=== PATIENT | male | born 1960 | race Asian ===

== ENCOUNTER 2023-05-15 09:55 | Emergency (ER) | payer MEDICAID, SELFPAY ==
[2023-05-15] VITALS (15 sets, daily range): BP systolic 135–164; BP diastolic 87–107; PULSE 53–71; RESP 18–20; TEMP 37.1; O2SAT 96–100; BMI 32.4
--- NOTE | 2023-05-15 10:34 | CRLHL7_ITS ---
For Patients: As a result of the Cures Act, medical imaging exams and procedure reports are released immediately into your electronic medical record. You may view this report before your referring provider. If you have questions, please contact your health care provider. INDICATION: COUGH TECHNIQUE: Chest 1 view COMPARISON: None FINDINGS: Cardiovascular and mediastinum: Cardiac silhouette is prominent. Lungs and pleural spaces: Lungs are clear. No sign of infiltrate or mass. No sign of pleural effusion. No pneumothorax. Bones and soft tissues: Chronic deformity of the mid left clavicle. Mild degenerative changes. IMPRESSION: No acute findings. Dictated by Misael Carmona MD @ 05/15/2023 11:10:59 AM (Electronically Signed)
--- NOTE | 2023-05-15 10:35 | ED_ITS ---
HPI - General Adult General Chief complaint: Shortness of Breath/Dyspnea Stated complaint: Short of breath, cough Time Seen by Provider: 05/15/23 09:59 History of Present Illness HPI narrative: This 62-year-old male comes in reporting cough and associated chest discomfort when coughing. He began coughing a couple days ago. He arrives with normal vital signs. He does not report any fever. 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 Related Data Previous Rx's Medication Instructions Recorded acetaminophen 300 mg-codeine 30 mg 1 tab PO Q6H PRN pain #20 tabs 05/15/23 tablet Allergies Allergy/AdvReac Type Severity Reaction Status Date / Time No Known Drug Allergies Allergy Verified 05/15/23 10:18 Review of Systems Status of ROS: Reports: 10 or more systems reviewed and unremarkable except as noted in History and below Narrative: Constitutional: No fevers, no weight gain or loss. Eyes: No discharge. No vision changes. HENT: No congestion, no sore throat, no ear pain. Cardiovascular: No palpitations. Respiratory: Frequent cough that is nonproductive and associated chest discomfort when coughing. Gastrointestinal: No abdominal pain, no vomiting, no diarrhea. Genitourinary: No dysuria, no hematuria. Musculoskeletal: Normal range of motion. Skin: No rashes, no pruritis. Neurological: No dizziness, weakness, sensory change, speech change. Endo/Heme/Allergies: No bruising or bleeding. No polydipsia. Pysch: no suicidality, no anxiety, no insomnia. All other systems reviewed and are negative. PFSH PFS Social History Smoking Status: Never smoker Do you use any of these nicotine containing products: None How often do you have a drink containing alcohol: never How often do you have six or more drinks on one occasion: Never AUDIT-C Alcohol total score: 0 Non-prescribed substance use: denies use Exam Narrative: Exam Narrative: Constitutional: Well-developed, well-nourished, no acute distress. HEENT: Normocephalic, atraumatic. Some nasal congestion and rhinorrhea. Neck: Normal range of motion. Nontender. Supple. Heart: Regular. No murmurs. Normal rate. Intact distal pulses. Lungs: Clear to auscultation. No chest discomfort. No wheezes, rhonchi, or rales. Frequent coughing which is nonproductive. Abdomen: Normal bowel sounds. Nontender. No rebound tenderness. Genitalia: Deferred. Back: No midline tenderness. Normal range of motion. Extremities: Normal range of motion. No injury. Skin: Intact. No rash. Warm. No erythema or pallor. Neurologic: No altered sensation. No weakness. Alert and oriented. Nursing notes and vitals signs are reviewed. Const: Vital Signs, click to edit/add: Vital Signs - 24 hr 05/15/23 10:07 05/15/23 10:49 05/15/23 10:50 Temperature 98.8 F Pulse Rate 64 63 Pulse Rate [Right Pulse Oximeter] 63 Respiratory Rate 18 Blood Pressure 159/97 H Blood Pressure [Le ft Upper Arm] 150/92 H Pulse Oximetry 96 99 100 Oxygen Delivery Me thod Room Air Room Air Room Air Course Vital Signs Vital signs: Initial Vital Signs Temperature 98.8 F 05/15/23 10:07 Temperature Source Temporal Artery Scan 05/15/23 10:07 Pulse Rate 63 05/15/23 10:07 Pulse Rhythm Regular 05/15/23 10:07 Respiratory Rate 18 05/15/23 10:07 Blood Pressure 150/92 H 05/15/23 10:07 Blood Pressure Mean 111 H 05/15/23 10:07 Blood Pressure Position Sitting 05/15/23 10:07 Pulse Oximetry 96 05/15/23 10:07 Oxygen Delivery Method Room Air 05/15/23 10:07 Vital Signs Temperature 98.8 F 05/15/23 10:07 Pulse Rate 63 05/15/23 10:07 Respiratory Rate 18 05/15/23 10:07 Blood Pressure 150/92 H 05/15/23 10:07 Pulse Oximetry 96 05/15/23 10:07 Oxygen Delivery Method Room Air 05/15/23 10:07 Temperature 98.8 F 05/15/23 10:07 Pulse Rate 71 05/15/23 12:30 Respiratory Rate 20 05/15/23 12:50 Blood Pressure 135/101 H 05/15/23 12:02 Pulse Oximetry 100 05/15/23 12:30 Oxygen Delivery Method Room Air 05/15/23 10:50 Medical Decision Making MDM Narrative Medical decision making narrative: This patient arrives with persistent nonproductive cough and associated chest discomfort when coughing. He also has rhinorrhea. Nasal swab is obtained and returns negative for COVID, influenza, and RSV. Additionally a chest x-ray shows no sign of acute pulmonary disease. The patient received an oral dose of dexamethasone 10 mg. He is okay to be discharged home. He was provided with a note for return to work and a prescription for some tablets of Tylenol 3 for symptomatic relief. Lab Data Labs: Lab Results 05/15/23 Range/Units 10:35 SARS-CoV-2 (PCR) Negative SARS-CoV-2 (Negative) Influenza Type A (PCR) Negative PCR FLU A (Negative) Influenza Type B (PCR) Negative PCR FLU B (Negative) RSV (PCR) Negative PCR RSV (Negative) Discharge Plan Discharge Clinical Impression: Acute upper respiratory infection Patient Disposition: Home, Self-Care Condition: Unchanged Additional Instructions: Take medication as prescribed and needed. Follow up with MD return if worsening. Prescriptions: New acetaminophen-codeine 300-30 mg tablet 1 tab PO Q6H PRN (Reason: pain) Qty: 20 0RF Follow Up/Referrals: Nazario Alvarado DO [Primary Care Provider] - Stand Alone Forms: [employer] Info Instructions
[2023-05-15 11:25] LABS: PCR FLU A Negative PCR FLU A (Negative); PCR FLU B Negative PCR FLU B (Negative); PCR RSV Negative PCR RSV (Negative)
[2023-05-15 11:29] LABS: SARS PCR* Negative SARS-CoV-2 (Negative)
[2023-05-15] MEDS: dexAMETHasone 10 MG/ML inj PO (12:45)
== END 2023-05-15 13:03 | disposition home or self-care (01) ==
PROVIDERS: Emergency Provider Emergency Medicine Emergency Medical Services; PCP Family Medicine
DX: J06.9 Acute upper respiratory infection, unspecified (principal)
CPT/HCPCS: 71045; 87631; 99283; 99284; J1100

== ENCOUNTER 2023-05-20 17:04 | Emergency (ER) | payer MEDICAID, SELFPAY ==
[2023-05-20 17:26] VITALS: BP 163/80; PULSE 53; RESP 20; TEMP 36.6; O2SAT 99; BMI 30.5
--- NOTE | 2023-05-20 18:32 | CRLHL7_ITS ---
For Patients: As a result of the Cures Act, medical imaging exams and procedure reports are released immediately into your electronic medical record. You may view this report before your referring provider. If you have questions, please contact your health care provider. INDICATION: Shortness of breath TECHNIQUE: Chest radiograph 2 views COMPARISON: 05/15/2023 FINDINGS: Cardiovascular and mediastinum: The heart silhouette is normal in size and morphology. The mediastinum is normal in appearance. Lungs and pleural spaces: Both lungs are unremarkable in appearance. No sign of pleural effusion seen. No pneumothorax is identified. Bones and soft tissues: No significant findings. IMPRESSION: 1. No acute cardiopulmonary disease is seen. Dictated by Darrell Nova MD @ 05/20/2023 8:07:52 PM Dictated by: Darrell Nova MD @ 05/20/2023 20:07:58 (Electronically Signed)
--- NOTE | 2023-05-20 18:33 | ED.GENADULT ---
HPI - General Adult General Chief complaint: Unspecified Complaint, Adult Stated complaint: Continual hiccups from meds-chest pressure-codeine Time Seen by Provider: 05/20/23 18:19 Source: patient Mode of arrival: ambulatory Limitations: language barrier History of Present Illness HPI narrative: 62-year-old male presenting today with uncontrollable hiccups that have been going on since Monday. He states that on Monday he was seen here with cough and given dexamethasone. The next day he developed hiccups and he has not been able to stop. He holds his breath, drinks water and nothing helps. He can not sleep at night. He states that his chest hurts because of this continuous hiccups. He does continue to cough and that has not gotten significantly better. He does feel short of breath because of this. No changes in appetite. He feels quite tired. No fevers or chills. No nausea or vomiting. Patient denies any medical issues, takes no daily medications. Related Data Previous Rx's Medication Instructions Recorded acetaminophen 300 mg-codeine 30 mg 1 tab PO Q6H PRN pain #20 tabs 05/15/23 tablet Allergies Allergy/AdvReac Type Severity Reaction Status Date / Time No Known Drug Allergies Allergy Verified 05/15/23 10:18 Review of Systems Status of ROS: Reports: 10 or more systems reviewed and unremarkable except as noted in History and below [facility] Social History Smoking Status: Never smoker Do you use any of these nicotine containing products: None How often do you have a drink containing alcohol: never How often do you have six or more drinks on one occasion: Never AUDIT-C Alcohol total score: 0 Non-prescribed substance use: denies use Exam Narrative: Exam Narrative: Overweight, well-developed patient , appears uncomfortable. Continuously hiccups throughout the H&P. Alert and oriented. Answers questions appropriately. Mood and affect are appropriate. Thoughts are goal oriented and rational. Patient speaks in full sentences without needing to catch his breath but cannot complete a sentence without hiccuping. HEENT: Normocephalic atraumatic. Pupils are equally round reactive to light. Extraocular muscles are intact. Conjunctivae are moist without any icterus noted. Moist mucous membranes. Posterior pharynx is normal. Neck is soft without any lymphadenopathy or thyromegaly. No masses are appreciated. Cardiovascular: Heart is regular rate and rhythm S1 and S2 are present without any murmurs. Lungs: Clear to auscultation bilaterally no wheezes rhonchi or rales are appreciated. Patient takes deep breaths without any discomfort. Abdomen: Soft and nontender nondistended , protuberant with normal bowel sounds. Extremities: Bilateral lower extremities are without edema. Normal DP and PT pulses. Skin: Well perfused without any obvious rashes. Const: Vital Signs, click to edit/add: Vital Signs - 24 hr 05/20/23 17:26 Temperature 98 F Pulse Rate [Pulse Oximeter] 53 L Respiratory Rate 20 Blood Pressure [Le ft Upper Arm] 163/80 H Pulse Oximetry 99 Oxygen Delivery Me thod Room Air Course Course ED Course: IV was started and patient received 1 mg of IV Ativan. EKG, read by me, shows sinus bradycardia with a pulse of 49. Chest x-ray, read by me, does not show any acute pathology. Patient's initial troponin did come back elevated at 0.1-aspirin 325 mg p.o. was administered. I went back to have a conversation with the patient to discuss his findings. Upon further exploration patient tells me that he feels like there is a tightness in his chest that gets worse when he hiccups. However, the tightness is there all the time for the last several days. Unfortunately, there is a language barrier as patient only speaks Dianne. At this time I did give the patient a sublingual nitroglycerin. Repeat EKG, read by me, is unchanged. Repeat troponin is 0.09. Heparin ACS protocol was started. Remainder of his lab work was unremarkable. Discussed the patient with physician at [facility]-patient will be transferred for cardiology services. Vital Signs Vital signs: Initial Vital Signs Temperature 98 F 05/20/23 17:26 Temperature Source Temporal Artery Scan 05/20/23 17:26 Pulse Rate 53 L 05/20/23 17: Respiratory Rate 20 05/20/23 17:26 Blood Pressure 163/80 H 05/20/23 17: Blood Pressure Mean 107 H 05/20/23 17:26 Blood Pressure Position Supine 05/20/23 17:26 Pulse Oximetry 99 05/20/23 17:26 Oxygen Delivery Method Room Air 05/20/23 17:26 Vital Signs Temperature 98 F 05/20/23 17:26 Pulse Rate 53 L 05/20/23 17:26 Respiratory Rate 20 05/20/23 17:26 Blood Pressure 163/80 H 05/20/23 17:26 Pulse Oximetry 99 05/20/23 17:26 Oxygen Delivery Method Room Air 05/20/23 17:26 Temperature 98 F 05/20/23 17:26 Pulse Rate 53 L 05/20/23 17:26 Respiratory Rate 20 05/20/23 17:26 Blood Pressure 163/80 H 05/20/23 17:26 Pulse Oximetry 99 05/20/23 17:26 Oxygen Delivery Method Room Air 05/20/23 17:26 Medical Decision Making MDM Narrative Medical decision making narrative: 62-year-old male with [id number] pain with elevated troponins. Patient will be transferred to [facility] for further management. Lab Data Lab results reviewed: Yes I reviewed the patient's lab results Labs: Lab Results 05/20/23 05/20/23 05/20/23 Range/Units 18:45 19:20 20:30 WBC 7.25 (4.50-11.00) K/uL RBC 5.07 (4.30-5.90) m/uL Hgb 14.7 (13.5-17.5) gm/dL Hct 43.4 (37.0-53.0) % MCV 86 (80-100) fL MCH 29 (26-34) pg MCHC 34 (32-36) gm/dL RDW Coeff of Tacho 12.7 (11.5-15.5) % Plt Count 233 (140-440) K/uL Neut % (Auto) 43.9 (42.0-72.0) % Lymph % (Auto) 41.0 (20-44) % [place] % (Auto) 9.1 (0.0-11.0) % Eos % (Auto) 4.7 (0.0-7.0) % Baso % (Auto) 0.7 (0.0-3.0) % Neut # (Auto) 3.19 (1.7-7.0) K/uL Lymph # (Auto) 2.97 H (0.90-2.90) K/uL [place] # (Auto) 0.70 (0.00-0.90) K/UL Eos # (Auto) 0.34 (0.00-0.50) K/uL Baso # (Auto) 0.05 (0.00-0.30) K/uL Abs Immat Gran (auto) 0.04 (0.00-0.30) K/uL Imm/Tot Granulo (auto) 0.6 % ESR 2 (2-15) mm/hr D-Dimer Quant (PE/DVT) < 0.27 (0.00-0.50) ug/ml Sodium 140 (135-149) mmol/L Potassium 4.2 (3.6-5.1) mmol/L Chloride 107 (96-114) mmol/L Carbon Dioxide 24 (20-32) mmol/L Anion Gap 9 (7-15) mEq/L BUN 13 (7-30) mg/dL Creatinine 0.8 (0.5-1.5) mg/dL Estimated Creat Clear 70.69 Estimated GFR 99 ml/min Glucose 104 (60-115) mg/dL Calcium 9.1 (8.4-10.6) mg/dL Total Bilirubin 0.3 (0.1-1.5) mg/dL Direct Bilirubin 0.0 (0.0-0.5) mg/dL AST 25 (12-35) U/L ALT 31 (4-50) U/L Alkaline Phosphatase 68 (40-150) U/L Troponin I 0.10 H* 0.09 H* (0.01-0.04) ng/mL C-Reactive Protein < 0.5 L (0.5-1.0) mg/dL Total Protein 7.5 (6.0-8.3) g/dL Albumin 4.3 (3.3-5.0) g/dL Lipase 104 (23-300) U/L TSH 1.520 (0.270-4.20) uIU/mL SARS-CoV-2 (PCR) Negative SARS-CoV-2 (Negative) Influenza Type A (PCR) Negative PCR FLU A (Negative) Influenza Type B (PCR) Negative PCR FLU B (Negative) RSV (PCR) Negative PCR RSV (Negative) Imaging Data Chest x-ray: Attestation: I have reviewed the pertinent imaging results. Radiologist's impression: Chest radiograph 2 views COMPARISON: 05/15/2023 FINDINGS: Cardiovascular and mediastinum: The heart silhouette is normal in size and morphology. The mediastinum is normal in appearance. Lungs and pleural spaces: Both lungs are unremarkable in appearance. No sign of pleural effusion seen. No pneumothorax is identified. Bones and soft tissues: No significant findings. IMPRESSION: 1. No acute cardiopulmonary disease is seen. ECG Data Attestation: I personally reviewed and interpreted this ECG as follows: Discharge Plan Discharge Clinical Impression: Non-STEMI (non-ST elevated myocardial infarction) Patient Disposition: [facility] Condition: Stable Prescriptions: No Action acetaminophen-codeine 300-30 mg tablet 1 tab PO Q6H PRN (Reason: pain) Qty: 20 0RF Follow Up/Referrals: Nazario Alvarado DO [Primary Care Provider] - Stand Alone Forms: [employer] Info Instructions
[2023-05-20] MEDS: LORazepam 2 MG/ML inj 1 MG IVP (18:43)
[2023-05-20 18:58] LABS: Basophils Absolute Auto 0.05 K/uL (0.00-0.30); Basophils Percent Auto 0.7 % (0.0-3.0); Eosinophils Absolute Auto 0.34 K/uL (0.00-0.50); Eosinophils Percent Auto 4.7 % (0.0-7.0); Hematocrit 43.4 % (37.0-53.0); Hemoglobin* 14.7 gm/dL (13.5-17.5); Immature Granulocytes Abs Auto 0.04 K/uL (0.00-0.30); Immature Granulocytes Pct Auto 0.6 %; Lymphocytes Absolute Auto 2.97 K/uL (0.90-2.90); Mean Corpuscular HGB Conc 34 gm/dL (32-36); Mean Corpuscular Hemoglobin 29 pg (26-34); Mean Corpuscular Volume 86 fL (80-100); Monocytes Percent Auto 9.1 % (0.0-11.0); Neutrophils Absolute Auto 3.19 K/uL (1.7-7.0); Neutrophils Percent Auto 43.9 % (42.0-72.0); Platelet Count* 233 K/uL (140-440); RDW Coefficient of Variation % 12.7 % (11.5-15.5); Red Blood Count 5.07 m/uL (4.30-5.90); White Blood Count* 7.25 K/uL (4.50-11.00)
[2023-05-20 19:01] LABS: Slide Review Reflex No
[2023-05-20 19:14] LABS: Chloride* 107 mmol/L (96-114)
[2023-05-20 19:15] LABS: Albumin* 4.3 g/dL (3.3-5.0); Potassium* 4.2 mmol/L (3.6-5.1); Sodium* 140 mmol/L (135-149)
[2023-05-20 19:17] LABS: Creatinine* 0.8 mg/dL (0.5-1.5); Est. Creatinine Clearance* 70.69; Estimated Glomerular Filt Rate 99 ml/min
[2023-05-20 19:18] LABS: Alanine Aminotransferase* 31 U/L (4-50); Alkaline Phosphatase* 68 U/L (40-150); Anion Gap 9 mEq/L (7-15); Aspartate Amino Transferase* 25 U/L (12-35); Bilirubin Total* 0.3 mg/dL (0.1-1.5); Blood Urea Nitrogen* 13 mg/dL (7-30); Calcium* 9.1 mg/dL (8.4-10.6); Carbon Dioxide* 24 mmol/L (20-32); Glucose* 104 mg/dL (60-115); Total Protein* 7.5 g/dL (6.0-8.3)
[2023-05-20 19:27] LABS: C Reactive Protein* < 0.5 mg/dL (0.5-1.0)
[2023-05-20 19:37] LABS: Erythrocyte SedimentationRate* 2 mm/hr (2-15)
[2023-05-20 19:47] LABS: D Dimer Quantitative* < 0.27 ug/ml (0.00-0.50)
[2023-05-20] MEDS: ASPIRIN 81 MG TAB.CHEW 324 MG PO (20:00)
[2023-05-20 20:51] LABS: Lipase* 104 U/L (23-300)
[2023-05-20 20:51] LABS: PCR FLU A Negative PCR FLU A (Negative); PCR FLU B Negative PCR FLU B (Negative); PCR RSV Negative PCR RSV (Negative)
[2023-05-20 20:54] LABS: SARS PCR* Negative SARS-CoV-2 (Negative)
[2023-05-20 21:15] LABS: Troponin I* 0.09 ng/mL (0.01-0.04)
[2023-05-20] MEDS: NITROGLYCERIN 0.4 MG TAB.SUBL SUBLINGUAL (21:47)
[2023-05-20] MEDS: HEPARIN 5,000 UNIT/0.5 ML INJ 4000 UNIT IVP (21:47)
[2023-05-20 21:50] VITALS: BP 165/101; PULSE 56; RESP 16; O2SAT 99
[2023-05-20 22:00] VITALS: BP 136/88; PULSE 50; RESP 16; O2SAT 98
[2023-05-20 22:30] VITALS: BP 152/79; PULSE 48; RESP 16; O2SAT 99
[2023-05-20] MEDS: HEPARIN 25,000 UNIT/500 ML BAG 21 UNIT IV (22:51)
[2023-05-20 23:05] LABS: Troponin I* 0.09 ng/mL (0.01-0.04)
[2023-05-20 23:10] LABS: INR 1.01 (0.91-1.10); Prothrombin Time 13.9 Seconds
[2023-05-20 23:45] LABS: Partial Thromboplastin Time* > 180 Seconds (23-33)
--- NOTE | 2023-05-20 23:47 | ED.NURSE ---
Call from lab, critical ptt, stop heparin per Dr. Wilson.
--- NOTE | 2023-05-20 23:57 | ED.NURSE ---
EMS arrived, report given. Lizbeth called with ETA of EMS.
--- NOTE | 2023-05-21 00:01 | ED.NURSE ---
lab informed APTT >180. Per protocol, Heparin drip stopped.
== END 2023-05-21 00:08 | disposition short-term general hospital (02) ==
PROVIDERS: Emergency Provider Family Medicine; PCP Family Medicine
DX: I21.4 Non-ST elevation (NSTEMI) myocardial infarction (principal)
CPT/HCPCS: 36415; 71046; 80048; 80076; 83690; 84443; 84484; 85025; 85379; 85610; 85651; 85730; 86140; 87631; 93005; 96374; 99285; A9270; J1644; J2060

== ENCOUNTER 2023-05-20 23:57 | Outpatient (CLI) | payer MEDICAID, SELFPAY | END 2023-05-20 23:58 | disposition home or self-care (01) | LOC: AMB 05-23 09:44 | PROVIDERS: PCP Family Medicine; Visit Provider Family Medicine | DX: I21.4 Non-ST elevation (NSTEMI) myocardial infarction (principal) | CPT/HCPCS: A0425; A0427 ==

== ENCOUNTER 2023-08-05 10:46 | Emergency (ER) | payer MEDICAID, SELFPAY ==
[2023-08-05] VITALS (13 sets, daily range): BP systolic 106–146; BP diastolic 57–80; PULSE 61–76; RESP 20; TEMP 38.2; O2SAT 94–96; BMI 30.7
--- NOTE | 2023-08-05 11:33 | CRLHL7_ITS ---
For Patients: As a result of the Cures Act, medical imaging exams and procedure reports are released immediately into your electronic medical record. You may view this report before your referring provider. If you have questions, please contact your health care provider. INDICATION: Body aches for 3 days, febrile INDICATION: Body aches for 3 days. TECHNIQUE: Chest 1 view. COMPARISON: None FINDINGS: Cardiovascular and mediastinum: Heart size and vasculature are normal in caliber and appearance. Mediastinum is within normal limits. Lungs and pleural space: Lungs are clear. No sign of infiltrate or mass. No sign of pleural effusion. No pneumothorax. Bones and soft tissues: No significant findings. IMPRESSION: Lungs are clear. Dictated by Cecil Bravo MD @ 08/05/2023 12:26:46 PM Dictated by: Cecil Bravo MD @ 08/05/2023 12:26:51 (Electronically Signed)
--- NOTE | 2023-08-05 11:36 | ED_ITS ---
HPI - General Adult General Date Seen: 08/05/23 Chief complaint: Cough Stated complaint: Body aches for three days, difficulty breathing Time Seen by Provider: 08/05/23 11:28 Source: patient and family Mode of arrival: ambulatory Limitations: language barrier History of Present Illness HPI narrative: Patient is a 62-year-old here with his sons for evaluation of cough, body aches, fatigue, nausea. Started with a cough a couple of days ago and his son says that he got worse yesterday was very achy all over, more coughing, no fevers that they are aware of but they really have not checked. Took Tylenol yesterday and that helps some, has not had any Tylenol since then. They did home COVID test which was negative. He has continued to feel poorly so they bring him in for evaluation. Son provides most of the history, patient does provide some history as well, son was interpreting for him. He notes that his throat feels dry in his eyes are burning. They denies significant medical history aside from borderline hypertension, no history of lung disease or heart disease. He does not smoke. Related Data Previous Rx's Medication Instructions Recorded oseltamivir 75 mg capsule (Tamiflu) 75 mg PO BID 5 days #10 caps 08/05/23 Allergies Allergy/AdvReac Type Severity Reaction Status Date / Time No Known Drug Allergies Allergy Verified 08/05/23 10:55 Review of Systems Status of ROS: Reports: 10 or more systems reviewed and unremarkable except as noted in History and below PFSH PFS Social History Smoking Status: Never smoker Do you use any of these nicotine containing products: None How often do you have a drink containing alcohol: never How often do you have six or more drinks on one occasion: Never AUDIT-C Alcohol total score: 0 Non-prescribed substance use: denies use Exam Narrative: Exam Narrative: Vital signs as noted above. In general, an alert, nontoxic male, appears not to feel well. Head: Normocephalic, atraumatic. Eyes: Pupils are equal reactive. Extraocular movements are full. Conjunctivae are normal. ENT: Mucous membranes are moist. Neck: Supple without lymphadenopathy. Heart: Regular rate and rhythm. No murmur or rub. Lungs: Clear bilaterally. No increased work of breathing, crackles or wheezes. Abdomen: Soft and nontender. No organomegaly. Extremities: Well perfused. No edema. No calf tenderness. Pulses intact. Neurologic: Patient is alert and oriented to person and place. Speech is fluent. Face is symmetric. Moves all extremities equally. Affect: Normal. Skin: Warm and dry. Well perfused. Const: Vital Signs, click to edit/add: Vital Signs - 24 hr 08/05/23 10:51 08/05/23 11:24 08/05/23 11:30 Temperature 100.7 F H Pulse Rate 67 69 Pulse Rate [Right] 76 Respiratory Rate 20 Blood Pressure Blood Pressure [Le ft Upper Arm] 121/71 Pulse Oximetry 96 94 94 Oxygen Delivery Me thod Room Air 08/05/23 11:32 08/05/23 11:45 08/05/23 12:06 Temperature Pulse Rate 68 72 66 Pulse Rate [Right] Respiratory Rate Blood Pressure 106/63 Blood Pressure [Le ft Upper Arm] Pulse Oximetry 95 96 94 Oxygen Delivery Me thod 08/05/23 12:15 08/05/23 12:30 08/05/23 12:32 Temperature Pulse Rate 64 63 63 Pulse Rate [Right] Respiratory Rate Blood Pressure 146/80 H Blood Pressure [Le ft Upper Arm] Pulse Oximetry 95 95 96 Oxygen Delivery Me thod Course Course ED Course: Respiratory swab pending here, rule out influenza or RSV, COVID probably less likely given negative home test. Will do a chest x-ray to rule out pneumonia, some basic labs. He has been having some trouble with eating and drinking due to nausea so will give some IV fluids, Zofran as well as some Tylenol. Overall labs are reassuring, white blood cell count is 5, lactate is normal, CRP mildly elevated at 2. Metabolic panel is unremarkable as are LFTs. COVID negative, flu positive. Chest x-ray negative by my review, final radiology read likewise negative. Discussed all this with patient and his sons, they are interested in Tamiflu so I will prescribe that. Otherwise supportive care, Tylenol, fluids, rest. Brandy lyonsd be seen if not gradually improving in the next week, sooner at any time for worsening respiratory symptoms etcetera Vital Signs Vital signs: Initial Vital Signs Temperature 100.7 F H 08/05/23 10:51 Temperature Source Temporal Artery Scan 08/05/23 10:51 Pulse Rate 76 08/05/23 10:51 Respiratory Rate 20 08/05/23 10:51 Blood Pressure 121/71 08/05/23 10:51 Blood Pressure Mean 87 08/05/23 10:51 Blood Pressure Position Sitting 08/05/23 10:51 Pulse Oximetry 96 08/05/23 10:51 Oxygen Delivery Method Room Air 08/05/23 10:51 Vital Signs Temperature 100.7 F H 08/05/23 10:51 Pulse Rate 76 08/05/23 10:51 Respiratory Rate 20 08/05/23 10:51 Blood Pressure 121/71 08/05/23 10:51 Pulse Oximetry 96 08/05/23 10:51 Oxygen Delivery Method Room Air 08/05/23 10:51 Temperature 100.7 F H 08/05/23 10:51 Pulse Rate 63 08/05/23 12:32 Respiratory Rate 20 08/05/23 10:51 Blood Pressure 146/80 H 08/05/23 12:32 Pulse Oximetry 96 08/05/23 12:32 Oxygen Delivery Method Room Air 08/05/23 10:51 Medications Administered Medications: Discontinued Medications Generic Name Dose Route Start Last Admin Trade Name Freq PRN Reason Stop Dose Admin Acetaminophen 1,000 mg 08/05/23 11:33 08/05/23 12:34 Acetaminophen 500 Mg Tablet PO 08/05/23 11:34 1,000 mg ONCE ONE Administration Sodium Chloride 1,000 mls @ 1,000 mls/hr 08/05/23 11:45 08/05/23 12:15 0.9 % Sodium Chloride 1000 Ml IV 08/05/23 12:44 1,000 mls/hr .Q1H SIL Administration Ondansetron HCl 4 mg 08/05/23 11:33 08/05/23 12:34 Ondansetron 2 Mg/Ml Inj IVP 08/05/23 11:34 4 mg ONCE ONE Administration Medical Decision Making Lab Data Labs: Lab Results 08/05/23 08/05/23 Range/Units 10:56 12:05 WBC 5.02 (4.50-11.00) K/uL RBC 4.98 (4.30-5.90) m/uL Hgb 14.3 (13.5-17.5) gm/dL Hct 42.4 (37.0-53.0) % MCV 85 (80-100) fL MCH 29 (26-34) pg MCHC 34 (32-36) gm/dL RDW Coeff of Tacho 13.1 (11.5-15.5) % Plt Count 177 (140-440) K/uL Neut % (Auto) 73.7 H (42.0-72.0) % Lymph % (Auto) 13.9 L (20-44) % [place] % (Auto) 11.4 H (0.0-11.0) % Eos % (Auto) 0.2 (0.0-7.0) % Baso % (Auto) 0.6 (0.0-3.0) % Neut # (Auto) 3.70 (1.7-7.0) K/uL Lymph # (Auto) 0.70 L (0.90-2.90) K/uL [place] # (Auto) 0.60 (0.00-0.90) K/UL Eos # (Auto) 0.01 (0.00-0.50) K/uL Baso # (Auto) 0.03 (0.00-0.30) K/uL Abs Immat Gran (auto) 0.01 (0.00-0.30) K/uL Imm/Tot Granulo (auto) 0.2 % Sodium 136 (135-149) mmol/L Potassium 4.0 (3.6-5.1) mmol/L Chloride 104 (96-114) mmol/L Carbon Dioxide 19 L (20-32) mmol/L Anion Gap 13 (7-15) mEq/L BUN 15 (7-30) mg/dL Creatinine 1.0 (0.5-1.5) mg/dL Estimated Creat Clear 68.23 Estimated GFR 85 ml/min Glucose 111 (60-115) mg/dL Lactate 0.8 (0.5-1.9) mmol/L Calcium 8.4 (8.4-10.6) mg/dL Total Bilirubin 0.4 (0.1-1.5) mg/dL Direct Bilirubin 0.2 (0.0-0.5) mg/dL AST 42 H (12-35) U/L ALT 35 (4-50) U/L Alkaline Phosphatase 65 (40-150) U/L C-Reactive Protein 2.0 H (0.5-1.0) mg/dL Total Protein 7.6 (6.0-8.3) g/dL Albumin 4.5 (3.3-5.0) g/dL SARS-CoV-2 (PCR) Negative SARS-CoV-2 (Negative) Influenza Type A (PCR) POSITIVE PCR FLU A A (Negative) Influenza Type B (PCR) Negative PCR FLU B (Negative) RSV (PCR) Negative PCR RSV (Negative) Discharge Plan Discharge Clinical Impression: Influenza A Patient Disposition: Home, Self-Care Condition: Stable Instructions: Influenza (DC) Additional Instructions: Tylenol 1000 g 3 times daily as needed for fever, aches, headache etcetera. Influenza typically lasts around a week, at which time you should start to feel better. If you are feeling worse rather than gradually improving you should be seen again for re-evaluation. Tamiflu as prescribed. Prescriptions: New oseltamivir [Tamiflu] 75 mg capsule 75 mg PO BID 5 Days Qty: 10 0RF Follow Up/Referrals: Nazario Alvarado DO [Referring] - Stand Alone Forms: [employer] Info Instructions
[2023-08-05 11:44] LABS: PCR FLU A POSITIVE PCR FLU A (Negative); PCR FLU B Negative PCR FLU B (Negative); PCR RSV Negative PCR RSV (Negative)
[2023-08-05 11:52] LABS: SARS PCR* Negative SARS-CoV-2 (Negative)
[2023-08-05 12:14] LABS: Lactate Sepsis w/Reflex* 0.8 mmol/L (0.5-1.9)
[2023-08-05] MEDS: 0.9 % SODIUM CHLORIDE 1000 ml 1,000 ML IV (12:15)
[2023-08-05 12:20] LABS: Basophils Absolute Auto 0.03 K/uL (0.00-0.30); Basophils Percent Auto 0.6 % (0.0-3.0); Eosinophils Absolute Auto 0.01 K/uL (0.00-0.50); Eosinophils Percent Auto 0.2 % (0.0-7.0); Hematocrit 42.4 % (37.0-53.0); Hemoglobin* 14.3 gm/dL (13.5-17.5); Immature Granulocytes Abs Auto 0.01 K/uL (0.00-0.30); Immature Granulocytes Pct Auto 0.2 %; Lymphocytes Percent Auto 13.9 % (20-44); Mean Corpuscular HGB Conc 34 gm/dL (32-36); Mean Corpuscular Hemoglobin 29 pg (26-34); Mean Corpuscular Volume 85 fL (80-100); Monocytes Percent Auto 11.4 % (0.0-11.0); Neutrophils Percent Auto 73.7 % (42.0-72.0); Platelet Count* 177 K/uL (140-440); RDW Coefficient of Variation % 13.1 % (11.5-15.5); Red Blood Count 4.98 m/uL (4.30-5.90); White Blood Count* 5.02 K/uL (4.50-11.00)
[2023-08-05 12:29] LABS: Slide Review Reflex No
[2023-08-05] MEDS: ONDANSETRON 2 MG/ML inj 4 MG IVP (12:34)
[2023-08-05] MEDS: ACETAMINOPHEN 500 MG TABLET 1000 MG PO (12:34)
[2023-08-05 12:37] LABS: Albumin* 4.5 g/dL (3.3-5.0); Chloride* 104 mmol/L (96-114); Sodium* 136 mmol/L (135-149)
[2023-08-05 12:40] LABS: Alkaline Phosphatase* 65 U/L (40-150); Anion Gap 13 mEq/L (7-15); Aspartate Amino Transferase* 42 U/L (12-35); Bilirubin Direct* 0.2 mg/dL (0.0-0.5); Bilirubin Total* 0.4 mg/dL (0.1-1.5); Blood Urea Nitrogen* 15 mg/dL (7-30); Carbon Dioxide* 19 mmol/L (20-32); Est. Creatinine Clearance* 68.23; Estimated Glomerular Filt Rate 85 ml/min; Glucose* 111 mg/dL (60-115); Total Protein* 7.6 g/dL (6.0-8.3)
[2023-08-05 12:41] LABS: Alanine Aminotransferase* 35 U/L (4-50); Calcium* 8.4 mg/dL (8.4-10.6)
== END 2023-08-05 13:17 | disposition home or self-care (01) ==
PROVIDERS: Emergency Provider Emergency Medicine
DX: J10.1 Influenza due to other identified influenza virus with other respiratory manifestations (principal)
CPT/HCPCS: 36415; 71045; 80048; 80076; 83605; 85025; 86140; 87040; 87631; 96374; 99284; A9270; J2405; J7030

== ENCOUNTER 2023-12-04 15:10 | Emergency (ER) | payer MEDICAID, SELFPAY ==
[2023-12-04 15:48] VITALS: BP 136/81; PULSE 62; RESP 18; TEMP 36.7; O2SAT 97; BMI 30.3
--- NOTE | 2023-12-04 16:38 | ED.GENADULT ---
HPI - General Adult General Time Seen by Provider: 16:38 Date Seen: 12/04/23 Chief complaint: Cough Stated complaint: Flu, cough Time Seen by Provider: 12/04/23 16:37 Source: patient, family, RN notes reviewed and historic interpreter Mode of arrival: ambulatory Limitations: no limitations History of Present Illness HPI narrative: This 63-year-old male is here with concern of headache, sore throat, cough, chest congestion and chest discomfort. He started with symptoms yesterday. The historic interpreter was trying to tell me that his symptoms started after eating watermelon. His daughter whom is in the room who is 17 stated that he was not interpreting correctly. Patient started to get sick yesterday with primarily complaining of the headache, sore throat with chest discomfort/cough. He has not had any fevers. Patient is not taking any medications. Did have influenza A in July, states that is doesn't feel like that. Does have a history of being transferred to [place] for NSTEMI in May 2023. He states that he is not on any medications, not even aspirin. Chest discomfort doesn't feel like that time. No travel recently. Related Data Previous Rx's Medication Instructions Recorded amoxicillin 875 mg tablet 875 mg PO BID #14 tabs 12/04/23 Allergies Allergy/AdvReac Type Severity Reaction Status Date / Time No Known Drug Allergies Allergy Verified 12/04/23 15:52 Review of Systems Status of ROS: Reports: 6 or more systems reviewed and unremarkable except as noted in History and below PFSH PFS Social History Smoking Status: Never smoker Do you use any of these nicotine containing products: None How often do you have a drink containing alcohol: never How often do you have six or more drinks on one occasion: Never AUDIT-C Alcohol total score: 0 Non-prescribed substance use: denies use Exam Const: Vital Signs, click to edit/add: Vital Signs - 24 hr 12/04/23 15:48 Temperature 98.1 F Pulse Rate [Pulse Oximeter] 62 Respiratory Rate 18 Blood Pressure [Le ft Upper Arm] 136/81 Pulse Oximetry 97 Oxygen Delivery Me thod Room Air This 63-year-old male is alert, interactive, no apparent stress. Seems to be speaking easily without difficulty. Sclera clear, conjugate gaze. TMs with normal translucency, no erythema. Anterior nares normal. Oropharynx with normal mucosa, no exudates erythema. Certainly see no significant tonsillar erythema or lesions. Neck supple, no adenopathy. Lungs are clear, good air entry, no wheezing or crackles. CV regular rate and rhythm, no murmur, normal S1-S2, no S3-S4. Patient has no lower extremity edema at all, no pretibial pitting edema. When I was examining his legs for edema, he complained of pain along his right heel, has point tenderness over the right heel, he did bring this up as an aside. Did review probable plantar fasciitis. Will provide him a handout at discharge. Documenting provider has reviewed patient's vital signs: yes Course Course ED Course: We will look at chest x-ray, labs, EKG. Certainly sounds like upper respiratory infection developing. Nursing staff did collect triple viral swab on arrival. Reevaluation(s) Time of Reevaluation #1: 18:48 Reevaluation #1: Try to review with patient and find out why he is not on any medicines. He does state that they put a stent in in May when he was sent to the economics faculty member. He states there were no refills on the medications. Reviewed with him that he needed to follow up in clinic, still should be on medicines for his heart. As far as his respiratory symptoms, he seems like he thinks he is getting an antibiotic. I have tried to review with them that I think this is probably viral. Even despite interpretation, there seems to be some difficulty. I ultimately decided to sending in short course of amoxicillin for him to the pharmacy. I will request that he follow up in clinic for further review of his cardiac medicines. Did try to go over that there was small little right-sided pleural effusion. This could be associated with a respiratory virus. He does not seem to have any symptoms of congestive heart failure. Vital Signs Vital signs: Initial Vital Signs Temperature 98.1 F 12/04/23 15:48 Temperature Source Temporal Artery Scan 12/04/23 15:48 Pulse Rate 62 12/04/23 15:48 Respiratory Rate 18 12/04/23 15:48 Blood Pressure 136/81 12/04/23 15:48 Blood Pressure Mean 99 12/04/23 15:48 Blood Pressure Position Sitting 12/04/23 15:48 Pulse Oximetry 97 12/04/23 15:48 Oxygen Delivery Method Room Air 12/04/23 15:48 Vital Signs Temperature 98.1 F 12/04/23 15:48 Pulse Rate 62 12/04/23 15:48 Respiratory Rate 18 12/04/23 15:48 Blood Pressure 136/81 12/04/23 15:48 Pulse Oximetry 97 12/04/23 15:48 Oxygen Delivery Method Room Air 12/04/23 15:48 Temperature 98.1 F 12/04/23 15:48 Pulse Rate 62 12/04/23 15:48 Respiratory Rate 18 12/04/23 15:48 Blood Pressure 136/81 12/04/23 15:48 Pulse Oximetry 97 12/04/23 15:48 Oxygen Delivery Method Room Air 12/04/23 15:48 Medical Decision Making Lab Data Lab results reviewed: Yes I reviewed the patient's lab results Labs: Lab Results 12/04/23 12/04/23 Range/Units 15:59 17:25 WBC 8.86 (4.50-11.00) K/uL RBC 5.14 (4.30-5.90) m/uL Hgb 14.7 (13.5-17.5) gm/dL Hct 44.4 (37.0-53.0) % MCV 86 (80-100) fL MCH 29 (26-34) pg MCHC 33 (32-36) gm/dL RDW Coeff of [place] 13.2 (11.5-15.5) % Plt Count 208 (140-440) K/uL Neut % (Auto) 71.5 (42.0-72.0) % Lymph % (Auto) 19.1 L (20-44) % [place] % (Auto) 6.5 (0.0-11.0) % Eos % (Auto) 2.4 (0.0-7.0) % Baso % (Auto) 0.3 (0.0-3.0) % Neut # (Auto) 6.33 (1.7-7.0) K/uL Lymph # (Auto) 1.70 (0.90-2.90) K/uL [place] # (Auto) 0.60 (0.00-0.90) K/UL Eos # (Auto) 0.21 (0.00-0.50) K/uL Baso # (Auto) 0.03 (0.00-0.30) K/uL Abs Immat Gran (auto) 0.02 (0.00-0.30) K/uL Imm/Tot Granulo (auto) 0.2 % SARS-CoV-2 (PCR) Negative SARS-CoV-2 (Negative) Influenza Type A (PCR) Negative PCR FLU A (Negative) Influenza Type B (PCR) Negative PCR FLU B (Negative) RSV (PCR) Negative PCR RSV (Negative) POC Troponin I 0.02 (0.01-0.04) ng/ml Imaging Data Chest x-ray: Attestation: I have reviewed the pertinent imaging results. My impression: Did visualize chest x-ray, do see small right pleural effusion, no infiltrate noted. Radiologist's impression: Patient: EFRA NASCIMENTO Facility:?[facility] Patient ID:?[id number] Site Patient ID:?[id number]. Site :?[id number] Study:?XRay-Chest 1 VIEW-12/04/2023 5:25:40 PM Ordering Physician:?DR. TINSLEY Final Report: Indication: FLU COUGH Technique: Frontal chest Comparison: Frontal chest August 05, 2023 Findings: Interval development of a small right pleural effusion. No focal consolidation or pneumothorax. Trachea is midline. Cardiac silhouette is unchanged. Bones and soft tissues are stable. Impression: Small right pleural effusion. Dictated by Howie Irwin MD @ 12/04/2023 5:56:44 PM (Electronic Signature) ECG Data Attestation: I personally reviewed and interpreted this ECG as follows: (Sinus bradycardia, 57 beats per minute. No ischemic change, no infarct noted. QT corrected 397 milliseconds.) Prior ECG tracings: available for review (Compared to 05/20/2023, heart rate has increased from 47 beats per minute 57 beats per minute.) Discharge Plan Discharge Clinical Impression: Acute upper respiratory infection, Plantar fasciitis of right foot Patient Disposition: Home, Self-Care Condition: Stable Instructions: Upper Respiratory Infection (ED), Plantar Fasciitis (ED), Plantar Fasciitis Exercises (ED) Additional Instructions: Amoxicillin sent in but do think that you can wait to take this. I do believe that your respiratory symptoms are likely viral, antibiotics do not help this. You can take the antibiotic if you feel you are worsening, not improving over the next 7-10 days. As far as your underlying cardiac issues, he really need to follow up in clinic and you should be on certain medications to help protect your heart and prevent further heart attacks. You certainly should be on an 81 mg aspirin daily unless you have been told for other reasons that you should not take aspirin. Activity Level: Activity as Tolerated Prescriptions: New amoxicillin 875 mg tablet 875 mg PO BID Qty: 14 0RF Follow Up/Referrals: Provider,Not a Local [Primary Care Provider] - Stand Alone Forms: [employer] Info Instructions
[2023-12-04 16:47] LABS: PCR FLU A Negative PCR FLU A (Negative); PCR FLU B Negative PCR FLU B (Negative); PCR RSV Negative PCR RSV (Negative); SARS PCR* Negative SARS-CoV-2 (Negative)
--- NOTE | 2023-12-04 16:58 | XR_ITS ---
Patient: EFRA NASCIMENTO Facility:?[facility] Patient ID:?[id number] Site Patient ID:?[id number]. Site :?1960 Study:?XRay-Chest 1 VIEW-12/04/2023 5:25:40 PM Ordering Physician:?DR. TINSLEY Final Report: Indication: FLU COUGH Technique: Frontal chest Comparison: Frontal chest August 05, 2023 Findings: Interval development of a small right pleural effusion. No focal consolidation or pneumothorax. Trachea is midline. Cardiac silhouette is unchanged. Bones and soft tissues are stable. Impression: Small right pleural effusion. Dictated by Howie Irwin MD @ 12/04/2023 5:56:44 PM Signed by:?Howie Irwin MD @12/04/2023 5:56:44 PM (Electronic Signature)
--- OUTSIDE RECORDS SUMMARY | 2023-12-04 17:12 | XMS_ITS | Clinical Summary ---
Author Name Unknown Organization [facility] Address [address] [place] [address] Care Team Providers Care Metal Bonding Assembler Name Role Phone Nazario Alvarado Primary Care Provider [phone] Allergies No known active allergies Medications Medication Sig Dispensed Refills Start Date End Date Status ARTIFICIAL TEAR SOLUTION OP Place 1 drop into both eyes as needed Active predniSONE (DELTASONE) 10 MG tabletIndications:Melanie n metapneumovirus (hMPV) pneumonia 4 tabs daily for 2 days, then 3 tabs daily for 2 days, then 2 tabs daily for 2 days, then 1 tab daily for 2 days, then stop 20 tablet 09/24/2022 Active albuterol (PROAIR HFA/PROVENTIL HFA/VENTOLIN HFA) 108 (90 Base) MCG/ACT inhalerIndications:Hum an metapneumovirus (hMPV) pneumonia Inhale 2 puffs into the lungs every 6 hours as needed for shortness of breath, wheezing or cough 18 g 09/24/2022 Active fluticasone-vilanterol (BREO ELLIPTA) 200-25 MCG/ACT inhalerIndications:Candor ctive airway disease without complication, unspecified asthma severity, unspecified whether persistent Inhale 1 puff into the lungs daily 28 each 09/24/2022 Active Active Problems Problem Noted Date Diagnosed Date Shortness of breath 09/22/2022 Wheezing 09/22/2022 Fever in adult 09/22/2022 Community acquired pneumonia of left upper lobe of lung 09/22/2022 Cough, unspecified type 09/22/2022 Immunizations Name Administration Dates Next Due TDAP (Adacel,Boostrix) 05/24/2020 Social History Tobacco Use Types Packs/Day Years Used Date Smoking Tobacco: Never Assessed Adolescent Education Answer Date Record ed Getting School Help Needed Not on file 04/29 Sex and Gender Information Value Date Recorded Sex Assigned at Not on file Gender Identity Not on file Sexual Orientation Not on file Last Filed Vital Signs Vital Sign Reading Time Taken Comments Blood Pressure 127/74 09/24/2022 12:10 PM COMMODITY MERCHANT Pulse 67 09/24/2022 12:10 PM COMMODITY MERCHANT Temperature 36.9 ??C (98.5 ??F) 09/24/2022 12:[address] Respiratory Rate 18 09/24/2022 12:10 PM COMMODITY MERCHANT Oxygen Saturation 97% 09/24/2022 12:10 PM COMMODITY MERCHANT Inhaled Oxygen Concentration - - Weight 84.8 kg (187 lb) 09/23/2022 5:37 AM COMMODITY MERCHANT Height 167.6 cm (5' 6) 09/21/2022 9:45 AM COMMODITY MERCHANT Body Mass Index 30.18 09/21/2022 9:45 AM COMMODITY MERCHANT Plan of Treatment Health Maintenance Due Date Last Done Comments ADVANCE CARE PLANNING 1960 ANNUAL REVIEW OF HM ORDERS 1960 ASTHMA ACTION PLAN [address] AST[address] TEST [address] COLONOGRAPHY 1959 FIT 1960 FLEX SIG 1960 YEARLY PREVENTIVE VISIT 1959 sDNA (Cologuard) 1960 Pneumococcal Vaccine: Pediatrics (0 to 5 Years) and At-Risk Patients (6 to 64 Years) (1 of 2 - PCV) 1965 COLONOSCOPY 1969 COLORECTAL CANCER SCREENING 1969 HIV SCREENING 1974 HEPATITIS C SCREENING 1977 ZOSTER IMMUNIZATION (1 of 2) 1978 LIPID 1999 RSV VACCINE ( & 60+) (1 - 1-dose 60+ series) 2019 COVID-19 Vaccine ( season) 2023 05/15/2021, 11/06/2020, 10/15/2020 INFLUENZA VACCINE (#1) 2023 PHQ-2 (once per calendar year) 2023 GLUCOSE 09/24/2025 09/24/2022, 09/07, 09/24/2022, Additional history exists DTAP/TDAP/TD IMMUNIZATION (2 - Td or Tdap) 05/24/2030 05/24/2020 HPV IMMUNIZATION Aged Out No longer e ligible based on patient's age to complete this topic IPV IMMUNIZATION Aged Out No longer e ligible based on patient's age to complete this topic MENINGITIS IMMUNIZATION Aged Out No l onger eligible based on patient's age to complete this topic RSV MONOCLONAL ANTIBODY Aged Out No l onger eligible based on patient's age to complete this topic Procedures Procedure Name Priority Date/Time Associated Diagnosis Comments GLUCOSE BY METER Routine 09/24/2022 2:21 AM COMMODITY MERCHANT from Last 3 Months or Most Recently Relevant to Health Maintenance Results * (ABNORMAL) Glucose by meter (09/24/2022 2:21 AM COMMODITY MERCHANT) GLUCOSE BY METER POCT 133(H) 70 - 99 mg/dL 09/24/2022 2:29 AM COMMODITY MERCHANT LABORATORY POC Blood, Capillary BLOOD SPECIMEN / Unknown 09/24/2022 2:21 AM COMMODITY MERCHANT 09/24/2022 2:29 AM COMMODITY MERCHANT [place] Pedraza MD [facility] POCT LABORATORY POC [facility] Lab [address], [address] [place] [address], [facility] [phone] from Last 3 Months or Most Recently Relevant to Health Maintenance Advance Directives For more information, please contact: [phone] * Full Code (Latest Code Status on File) Date Activated Date Inactivated Comments 09/21/2022 3:20 PM 09/24/2022 4:17 PM All basic an d advanced life-sustaining interventions are performed as appropriate Question Answer Comments Code status determined by: Discussion with delbert nt/ legal decision maker Care Teams Metal Bonding Assembler Relationship Specialty Start Date End Date Nazario Alvarado [address] [facility] [address] PCP - General Family Practice 05/24/20
--- OUTSIDE RECORDS SUMMARY | 2023-12-04 17:13 | XMS_ITS | Referral Summary ---
Author Name Unknown Organization [facility] Address [address] [place] [address] Care Team Providers Care Founder Ceo & President Name Role Phone Nazario Alvarado Primary Care Provider [phone] Allergies No known active allergies Medications Medication [...] 09/24/2022 Active fluticasone-vilanterol (BREO ELLIPTA) 200-25 MCG/ACT inhalerIndications:[place] ctive airway disease without complication, unspecified asthma [...] Comments Blood Pressure 127/74 09/24/2022 12:10 PM CORPORATE DEVELOPMENT INTERN Pulse 67 09/24/2022 12:10 PM CORPORATE DEVELOPMENT INTERN Temperature 36.9 ??C (98.5 ??F) 09/24/2022 12:[address] Respiratory Rate 18 09/24/2022 12:10 PM CORPORATE DEVELOPMENT INTERN Oxygen Saturation 97% 09/24/2022 12:10 PM CORPORATE DEVELOPMENT INTERN Inhaled Oxygen Concentration - - Weight 84.8 kg (187 lb) 09/23/2022 5:37 AM CORPORATE DEVELOPMENT INTERN Height 167.6 cm (5' 6) 09/21/2022 9:45 AM CORPORATE DEVELOPMENT INTERN Body Mass Index 30.18 09/21/2022 9:45 AM CORPORATE DEVELOPMENT INTERN Plan of Treatment Not on file Procedures Procedure Name Priority Date/Time Associated Diagnosis Comments GLUCOSE BY METER Routine 09/24/2022 2:21 AM CORPORATE DEVELOPMENT INTERN from Last 3 Months or Most Recently Relevant to Health Maintenance Results * (ABNORMAL) Glucose by meter (09/24/2022 2:21 AM CORPORATE DEVELOPMENT INTERN) [facility] Signature GLUCOSE BY METER POCT 133(H) 70 - 99 mg/dL 09/24/2022 2:29 AM CORPORATE DEVELOPMENT INTERN LABORATORY POC Blood, Capillary BLOOD SPECIMEN / Unknown 09/24/2022 2:21 AM CORPORATE DEVELOPMENT INTERN 09/24/2022 2:29 AM CORPORATE DEVELOPMENT INTERN [place] [facility] PO[facility] POC [facility] Lab [address], [address] [place] [address], [facility] [phone] from Last 3 Months or Most Recently Relevant to Health Maintenance Advance Directives For more information, please contact: [phone] * Full Code (Latest Code Status on File) Date Activated Date Inactivated Comments 09/21/2022 3:20 PM 09/24/2022 4:17 PM All basic an d advanced life-sustaining interventions are performed as appropriate Question Answer Comments Code status determined by: Discussion with delbert nt/ legal decision maker Care Teams Founder Ceo & President Relationship Specialty Start Date End Date Nazario Alvarado [address] [place] [address] PCP - General Family Practice 05/24/20
--- OUTSIDE RECORDS SUMMARY | 2023-12-04 17:13 | XMS_ITS | Clinical Summary ---
Author Name Unknown Organization [facility] Address [place], [place] [address] Care Team Providers Care Microwave Supervisor Name Role Phone Lucy Villa DO Primary Care Provider [phone] Allergies No known active allergies Medications Medication Sig Dispensed Refills Start Date End Date Status Advair Diskus 100-50 mcg/dose diskus inhaler Inhale 1 Puff by mouth two times daily. 03/27/2023 Active atorvastatin (LIPITOR) 40 mg tabletIndications:Hy pertriglyceridemia Take 1 Tablet (40 mg) by mouth once daily in the evening. 30 Tablet 05/22/2023 Active albuterol (PROVENTIL) 0.083 % neb solutionIndications: Shortness of breath Inhale 3 mL (2.5 mg) via a nebulizer every 4 hours if needed for Shortness Of Breath or Wheezing. 90 mL 1 05/25/2023 Active CPAPIndications:CINDY (obstructive sleep apnea) CPAP machine for home use at pressure 9 cm/H2O, full face mask x1/3month with a full face cushion x1/mo 1 Each 3 10/02/2023 Active Active Problems Problem Noted Date Diagnosed Date Elevated troponin level 05/20/2023 Hearing loss 05/20/2023 Overview: Mixed conductive and sensorineural hearing loss of left ear with restricted hearing of right ear Non-STEMI (non-ST elevated myocardial infarction ) 05/07/2023 Pneumonia due to human metapneumovirus Shortness of breath 09/22/2022 Community acquired pneumonia of left upper lobe of lung 09/22/2022 CINDY 05/08/2018 AHI-6 RDI-21 Supine REM-60 018 Adenomatous colon polyp 05/02/2018 Overview: Colonoscopy 04/2018 polyps, repeat in 3 years False positive cardiac stress test 03/07/2018 Abnormal cardiovascular stre ss test - inferior ischemia on stress echo 03/02/2018 Overview: False positive stress test, angiogram was normal Obesity 03/02/2018 Ventral hernia without obstruction or gangrene 0 03/02/2018 Family history of cardiac disorder 03/02/2018 Angina pectoris 03/02/2018 Resolved Problems Problem Noted Date Diagnosed Date Resolved Date CINDY 05/08/2018 AHI-6 RDI-21 Supine REM-60 07/05/2018 07/05/2018 CINDY (obstructive sleep apnea) 05/08/2018 07/05/2018 Overview: Sleep study at [facility] Cardiac ischemia 02/26/2018 03/02/2018 Encounters Date Type Department Care Team Description 10/02/2023 Telephone [facility] [address] [place] [address] Jack Bean MD Medication Management (CPAP) 10/02/2023 Telephone [facility] [address] [place] [address] Jack Bean MD Error-please disregard 09/29/2023 Telephone [facility] [address] [place] [address] Jack Bean MD Appointment (CPAP not working) 09/29/2023 Telephone [facility] [address] [place] [address] Conor Polk, [facility] (batteries) 09/08/2023 Orders Only INTERFACED 1 Adam Dugan MD <No scans attached> from Last 3 Months Immunizations Name Administration Dates Next Due Tdap 05/24/2020 Family History Medical History Relation Name Comments Diabetes type II Brother 1 COPD Brother 2 Heart attack Father Osteoarthritis Mother Diabetes type II Sister Relation Name Status Comments Brother 1 (Age T2DM) 80 Brother 2 (Age 65) COPD Brother 3 Alive Brother 4 Alive Brother 5 Alive Father (Age 70) OK Mother (Age 85) OA Sister (Age 65) T2DM Social History Tobacco Use Types Packs/Day Years Used Date Smoking Tobacco: Former Smokeless Tobacco: Never Tobacco Cessation:Counseling Given: Yes Comments:smoked 4-5 years only Alcohol Use Standard Drinks/Week Comments No 0 (1 standard drink = 0.6 oz pur e alcohol) PHQ-2 Answer Date Recorded PHQ-2 TOTAL SCORE 0 07/16/2020 Social Connections Answer Date Recorded Frequency of Communication with Friends and Fami ly 0 09/30/2022 Financial Resource Strain Answer Date R ecorded Difficulty of Paying Living Expenses 3 09/30/2022 Difficulty of Paying Living Expenses Not on file 09/30/2022 Food Insecurity Answer Date Recorded Worried About Running Out of Food in the Last Ye ar 1 09/30/2022 Transportation Needs Answer Date Record ed Lack of Transportation (Medical) 1 09/30/2022 Housing Stability Answer Date Recorded Unable to Pay for Housing in the Last Year 1 09/30/2022 Sex and Gender Information Value Date Recorded Sex Assigned at Not on file Gender Identity Not on file Sexual Orientation Not on file Obstetrics History Last Filed Vital Signs Vital Sign Reading Time Taken Comments Blood Pressure 142/82 07/03/2023 1:10 PM SHINGLE CARRIER Pulse 67 07/03/2023 1:07 PM [facility]INGLE CARRIER Temperature 37.3 ??C (99.2 ??F) 07/03/2023 1:07 PM CS T Respiratory Rate 18 05/22/2023 3:15 PM CDT Oxygen Saturation 98% 07/03/2023 1:07 PM SHINGLE CARRIER Inhaled Oxygen Concentration - - Weight 93.6 kg (206 lb 4.8 oz) 07/03/2023 1:07 P M SHINGLE CARRIER Height 168 cm (5' 6.14) 07/03/2023 1:07 PM SHINGLE CARRIER Body Mass Index 33.15 07/03/2023 1:07 PM SHINGLE CARRIER Plan of Treatment Upcoming Encounters Date Type Department Care Team (Late st Contact Info) Description 12/14/2023 3:30 PM CDT Office Visit [facility] [address] [place] [address] Jack Bean MD [address] [place] [address] Health Maintenance Due Date Last Done Comments HIV for age 15-65 1974 Zoster (shingles) series for age 50+ (1 of 2) 2009 Depression screening for age 12+ 07/16/2021 07/16/2020, 02/28/2018, 02/05/2018 COVID-19 vaccine series ( season) 2023 05/15/2021, 11/06/2020, 10/15/2020 Influenza for age 50-64 04/07/2024 BMI (ht and wt on same day) for age 18+ 07/03/2024 07/03/2023, 05/15/2023, 10/18/2022, Additional history exists Colonoscopy through age 75 09/08/202609/08, 04/30/2018, 04/30/2018, Additional history exists Lipids for age 45-75 05/21/2028 05/21/2023, 02/28/2018, 02/05/2018 Tetanus booster 05/24/2030 05/24/2020 Hepatitis C screening for age 18-79 Completed 05/30/2019 Tdap Completed 05/24/2020 Pneumococcal series for age 6-64 Aged Out No longer eligible based on patient's age to complete this topic Procedures Procedure Name Priority Date/Time Associated Diagnosis Comments SCAN-COLONOSCOPY 09/08/2023 3:00 PM SHINGLE CARRIER LIPID PANEL Early AM 05/21/2023 4:52 AM CDT ANTI HCV Routine 05/30/2019 9:15 AM CDT Encounter for HCV screening test for low risk patient from Last 3 Months or Most Recently Relevant to Health Maintenance Results * SCAN-COLONOSCOPY (09/08/2023 3:00 PM SHINGLE CARRIER) Narrative Procedure Note Link, Adam Erickson MD - 09/08/2023 2:07 PM CST [facility] [address] [address] [facility] [address], [address], [place] [address] Patient Name: Francisco Richardson Gender: Male Exam Date: 09/08/2023 Visit Number: [id number] Age: 63 Years Date of : 1960 Attending MD: Adam Dugan MD Medical Record#: [id number] Procedure: Colonoscopy Indications: Previous adenomatous polyp(s) Referring MD: Amisha Kelly PAC Primary MD: MD Monk Primary Medications: Intra Procedure Medications: Patient received monitored anesthesia care. Complications: No immediate complications Procedure: An examination of the heart and lungs was performed and found to be withinacceptable limits. . The patient was therefore deemed a reasonablecandidate for endoscopy and sedation. The risks and benefits of the procedure were explained to the patient.After obtaining informed consent, the patient received monitoredanesthesia care and I passed the scope without difficulty via the rectum to the cecum. The appendiceal orificeand ic valve were identified. The scope was retroflexed during theexamination The quality of the prep was good (Adrian/Gat Split). This was a complete examination throughout the entire colon. Findings: Polyp location: ascending colon. Quantity: 3. Size: 5-8 mm. Polypshape: sessile. Maneuver: polypectomy was performed with a cold snare. Removal: complete. Retrieval: complete. Bleeding: none. Polyp location: ascending colon. Quantity: 1. Size: 2 mm. Polyp shape:sessile. Maneuver: polypectomy was performed with a cold biopsy forceps . Removal: complete. Retrieval: complete. Bleeding: none. Polyp location: transverse colon. Quantity: 1. Size: 5 mm. Polypshape: sessile. Maneuver: polypectomy was performed with a cold snare . Removal: complete. Retrieval: none. Bleeding: none. Location: descending colonQuantity: 1. Size: 6 mm. Polyp shape: skip. Maneuver: polypectomy was performed with a cold snare . Removal: complete. Retrieval: complete. Bleeding: none. Hemorrhoids. Internal hemorrhoids without bleeding. Impression: Colorectal polyps Internal hemorrhoids Preliminary Plan: The patient and their physician will receive a copy of the pathologyreport as well as pathology-based recommendations for future screening orsurveillance. Pathology Results: A: COLON, ASCENDING, POLYPS: 1. Tubular adenomas (4) 2. Negative for high grade dysplasia 3. Per the colonoscopy report: a. Polyp sizes: 2 mm - 8 mm b. Resection: Complete c. Retrieval: Complete B: COLON, DESCENDING, POLYP: 1. Tubular adenoma 2. Negative for high grade dysplasia 3. Per the colonoscopy report: a. Polyp size: 6 mm b. Resection: Complete c. Retrieval: Complete MICROSCOPIC A: Performed B: Performed Electronically signed by: El Velez MD Interpreted at [facility], [address] [place], [place] [id number] Orders Instruction(s)/Education: Instruction/Education Timeframe Assessment Colon Cancer Prevention K63.5 Colon Polyps K63.5 Hemorrhoids K63.5 Final Plan: Repeat colonoscopy in 3 years for Polyp surveillance. We will attempt to contact you at appropriate intervals via U.S. mail. Wemay not be able to find you or contact you at that time, therefore youshould know that the responsibility for following our recommendation restswith you. If you don't hear from us at the time your procedure is due,please contact our office to schedule an appointment. If your contactinformation should change, please contact our office so that we can updateyour record. _Electronically signed by: Adam Dugan MD 09/08/2023 cc: No Primary cc: Amisha Kelly [facility] Adam Dugan MD OTHER * (ABNORMAL) Lipid Panel - In AM (05/21/2023 4:52 AM CDT) CHOLESTEROL,TOTAL 184 100 - 199 mg/dL 05/21/2023 5:56 AM CDT [facility] Comment: Cholesterol, Total Reference Ranges Desirable <200 mg/dL Borderline 200-239 mg/dL High >=240 mg/dL TRIGLYCERIDES 264(H) <150 mg/dL 05/21/2023 5:56 AM CDT [facility] HDL CHOLESTEROL 33(L) >40 mg/dL 5:56 AM CDT [facility] NON-HDL CHOLESTEROL 151(H) <145 mg/dl 05/21/2023 5:56 AM CDT [facility] CHOL/HDL RATIO 5.58(H) <4.50 05/21/2023 5:56 AM CDT [facility] LDL CHOLESTEROL 98 <=130 mg/dL 05/21/2023 5:56 AM CDT [facility] VLDL CHOLESTEROL 53(H) <=30 mg/dL 05/21/2023 5:56 AM CDT [facility] PROVIDER ORDERED STATUS RANDOM 05/21/2023 5:56 AM CDT [facility] Blood BLOOD SPECIMEN / Unknown Venipuncture / Unknown 05/21/2023 4:52 AM CDT 05/21/2023 5:19 AM CDT Nimesh Kay MD CHEMISTRY [facility] [address] [place] [address], * ANTI HCV (05/30/2019 9:15 AM CDT) HEPATITIS C ANTIBODY Non-React jad Non-React jad 05/30/2019 2:35 PM CDT [facility] Comment:Antibodies to HCV no t detected; does not exclude the possibility of exposure to HCV. Blood BLOOD SPECIMEN / Unknown Venipuncture / Unknown 05/30/2019 9:15 AM CDT 05/30/2019 9:19 AM CDT [facility] [address] [place] [address], from Last 3 Months or Most Recently Relevant to Health Maintenance Advance Directives * Full Code (Latest Code Status on File) Date Activated Date Inactivated Comments 05/21/2023 1:26 AM 05/22/2023 6:31 PM Question Answer Comments Code Status Discussion: Reviewed Preferences * Full Code Date Activated Date Inactivated Comments 03/02/2018 9:00 AM 03/02/2018 8:01 PM Care Teams Microwave Supervisor Relationship Specialty Start Date End Date Lucy Villa DO [address] [place] [address] PCP - General Family Practice 06/02/23
[2023-12-04 17:47] LABS: Troponin, Point-of-Care* 0.02 ng/ml (0.01-0.04)
[2023-12-04 18:19] LABS: Basophils Absolute Auto 0.03 K/uL (0.00-0.30); Basophils Percent Auto 0.3 % (0.0-3.0); Eosinophils Absolute Auto 0.21 K/uL (0.00-0.50); Eosinophils Percent Auto 2.4 % (0.0-7.0); Hematocrit 44.4 % (37.0-53.0); Hemoglobin* 14.7 gm/dL (13.5-17.5); Immature Granulocytes Abs Auto 0.02 K/uL (0.00-0.30); Immature Granulocytes Pct Auto 0.2 %; Lymphocytes Percent Auto 19.1 % (20-44); Mean Corpuscular HGB Conc 33 gm/dL (32-36); Mean Corpuscular Hemoglobin 29 pg (26-34); Mean Corpuscular Volume 86 fL (80-100); Monocytes Percent Auto 6.5 % (0.0-11.0); Neutrophils Absolute Auto 6.33 K/uL (1.7-7.0); Neutrophils Percent Auto 71.5 % (42.0-72.0); Platelet Count* 208 K/uL (140-440); RDW Coefficient of Variation % 13.2 % (11.5-15.5); Red Blood Count 5.14 m/uL (4.30-5.90); White Blood Count* 8.86 K/uL (4.50-11.00)
[2023-12-04 18:25] LABS: Slide Review Reflex No
[2023-12-04 18:48] LABS: Chloride* 107 mmol/L (96-114); Potassium* 4.2 mmol/L (3.6-5.1); Sodium* 141 mmol/L (135-149)
[2023-12-04 18:51] LABS: Anion Gap 8 mEq/L (7-15); Carbon Dioxide* 26 mmol/L (20-32); Creatinine* 0.8 mg/dL (0.5-1.5); Est. Creatinine Clearance* 67.34; Estimated Glomerular Filt Rate 99 ml/min
[2023-12-04 18:52] LABS: Blood Urea Nitrogen* 14 mg/dL (7-30); Calcium* 9.2 mg/dL (8.4-10.6); Glucose* 78 mg/dL (60-115)
[2023-12-04 18:54] LABS: C Reactive Protein* 0.8 mg/dL (0.5-1.0)
== END 2023-12-04 19:10 | disposition home or self-care (01) ==
PROVIDERS: Emergency Provider Family Medicine
DX: J06.9 Acute upper respiratory infection, unspecified (principal); M72.2 Plantar fascial fibromatosis
CPT/HCPCS: 36415; 71045; 80048; 84484; 85025; 86140; 87631; 99283

== ENCOUNTER 2025-02-14 18:20 | Emergency (ER) | payer MEDICAID, SELFPAY ==
--- OUTSIDE RECORDS SUMMARY | 2023-09-08 10:01 | XMS_ITS | Continuity of Care Document ---
Author Organization [facility] Address [address] [address] [place] [address] Phone Care Team Providers Care Environmental Laboratory Technician Name Role Phone Holley Vidal CRNA Unavailable Unavailable Allergies, Adverse Reactions, Alerts Substance Reaction Status Criticality No Known Allergies Active No Inform ation Medications Medication Instructions Dosage Effective Dates (start - s top) Status Comments Inhaler unknown as needed - Active Procedures Procedure Date Colonoscopy Flex; W/remov Les- Colonoscopy Flex; W/bx 1/mx Level Iv-surg Path Gross/micro 24 Init Hosp-da E&m Low Severity 3 Advance Directives Directive Yes / No Effective Date File Name No Information Encounters Encounter Description Practice Location Reason(s) For Visit Diagnoses Date Provider Providers Copied on Encounter [facility], [address] [address], [facility] [place], [id number], [place] tel:[phone] [facility] No Information 4 Young Babb. [address] [facility], [place], [place], [id number] , [place]. tel:[phone] Referring Provider: Adam Dugan MD, [address] [facility] [address], [place], [address] . tel:[phone] [facility], [address] [address], [place], [id number], [place] tel:[phone] [facility] Colorectal polypsInternal hemorrhoidsEncou nter for screening for malignant neoplasm of colonBenign neoplasm of ascending colonBenign neoplasm of descending colonPersonal history of colonic polyps 4 Ritchie Medina. [address] [facility] [address], [place], [place], [address] , [place]. tel:[phone] Referring Provider: Amisha Hart, [address] [place], [address]. tel:[phone] [facility], [address] [address], [place], [id number], [place] tel:[phone] [facility] No Information 3 Francesco Van. [address] [facility] [address], [place], [place], [address] , [place]. tel: [phone] Init Hosp-da E&m Low Severity [facility], [address] [address], [place], [address], [place] tel:[phone] [facility] No Information 3 Juan Jose Perkins. [address] [facility], [address], [place], [place], [address] , [place]. tel: [phone] Referring Provider: Gregorio Ingram MD , [address] [facility] [address], [place], [address] . tel:[phone] Family History Family Member Type Diagnosis Age At Onset No Information Immunizations Vaccine Date Status Comments SARS-COV-2 (COVID-19) vaccin e, mRNA, spike protein, LNP, preservative free, 30 mcg/0.3mL dose administered Note: [facility] bi-direct ional interface ; Source: Other Registry SARS-COV-2 (COVID-19) vaccin e, mRNA, spike protein, LNP, preservative free, 30 mcg/0.3mL dose administered Note: [facility] bi-direct ional interface ; Source: Other Registry SARS-COV-2 (COVID-19) vaccin e, mRNA, spike protein, LNP, preservative free, 30 mcg/0.3mL dose administered Note: [facility] bi-direct ional interface ; Source: Other Registry tetanus toxoid, reduced diphtheria toxoid, and acellular pertussis vaccine, adsorbed administered Note: [facility] b i-directional interface ; Source: Other Registry Payers Payer name Insurance type Covered alliance party ID Authordeion shwetha(s) raheel [facility] [id number] Social History Type Description Quantity Date Captured Comments Sex Male Smoking Status No Information Chief Complaint And Reason For Visit No Information Reason For Referral Reason For Referral No Information History Of Present Illness Encounter Date Complaint History Of Prese nt Illness No Information Functional Status Date Functional Assessmen t No Information Medications Administered Medication Instructions Dosage Effective Dates (start - stop) Status Comments No Drug Therapy Prescribed Instructions Date Instruction Additional Daljitr hector Colon Cancer Prevention Related to Colorectal polyps Colon Polyps Related to Color ectal polyps Hemorrhoids Related to Color ectal polyps Assessments Type Assessment Date No Information Patient Care Teams Name Effective Dates (start - stop) Status Members No Information
--- OUTSIDE RECORDS SUMMARY | 2023-09-08 10:01 | XMS_ITS | Continuity of Care Document ---
Author Organization [facility] Address [address] [address] [place] [address] Phone Care Team Providers Care Sales And Merchandising Representative Name Role Phone Holley Vidal CRNA Unavailable [...] Diagnoses Date Provider Providers Copied on Encounter [facility], [address] [address], [facility] [place], [id number], [place] tel:[phone] [facility] No Information 4 Young Babb. [address] [facility], [place], [place], [address] , [place]. tel:[phone] Referring Provider: Adam Dugan MD, [address] [facility] [address], [place], [address] . tel:[phone] [facility], [address] [address], [place], [address], [place] tel:[phone] [facility] Colorectal polypsInternal hemorrhoidsEncou nter for screening for malignant neoplasm of colonBenign neoplasm of ascending colonBenign neoplasm of descending colonPersonal history of colonic polyps 4 Ritchie Medina. [address] [facility] [address], [place], [place], [address] , [place]. [phone] Referring Provider: Amisha Hart, [address] [place], [address]. tel:[phone] [facility], [address] [address], [place], [address], [place] tel:[phone] [facility] No Information 3 Francesco Van. [address] [facility] [address], [place], [place], [address] , [place]. tel: [phone] Init Hosp-da E&m Low Severity [facility], [address] [address], [place], [address], [place] tel:[phone] [facility] No Information 3 Juan Jose Perkins. [address] [facility], [address], [place], [place], [address] , [place]. tel: [phone] Referring Provider: Gregorio Ingram MD , [address] [facility] [address], [place], [address] . tel:[phone] Family History Family Member Type Diagnosis Age [...] Registry Payers Payer name Insurance type Covered democrat ID Authordeion shwetha(s) raheel [facility] [id number] Social History Type Description Quantity Date Captured [...]
--- OUTSIDE RECORDS SUMMARY | 2025-02-14 18:23 | XMS_ITS | Clinical Summary ---
Author Organization [facility] Address [address] [place] [address] Care Team Providers Care Finance Professor Name Role Phone Lucy Villa DO Primary Care Provider [phone] Allergies No known active allergies Medications Advair Diskus 100-50 mcg/dose diskus inhaler Inhale 1 Puff by mouth two times daily. 03/27/20 23 Active albuterol (PROVENTIL) 0.083 % neb solutionIndica tions:Shortnes s of breath Inhale 3 mL (2.5 mg) via a nebulizer every 4 hours if needed for Shortness Of Breath or Wheezing. 90 mL 1 05/25/20 23 Active CPAPIndication s:CINDY (obstructive sleep apnea) RESMED CPAP machine for home use at pressure 9 cmw, CPAP mask- mask of choice, fit to comfort one per 3 months 1 Each 11 12/14/19 24 Active acetaminophen (TYLENOL EXTRA STRGTH) 500 mg tabletIndicati ons:Pain of right heel Take 2 Tablets (1,000 mg) by mouth every 6 hours if needed for Pain. Max acetaminophen dose: 4000mg in 24 hrs. 40 Tablet 02/22/20 24 Active ibuprofen (ADVIL; MOTRIN) 600 mg tabletIndicati ons:Pain of right heel Take 1 Tablet (600 mg) by mouth every 6 hours if needed for Pain. Maximum of 3200 mg in 24 hours. 20 Tablet 02/22/20 24 Active durable medical equipment (DME)Indicatio ns:Plantar fasciitis [id number] Plantar Fasciitis Night Splint, Large 1 Each 05/29/20 24 Active durable medical equipment (DME)Indicatio ns:Plantar fasciitis 01ES-L Airselect, Short, Large 1 Each 05/29/20 24 Active atorvastatin (LIPITOR) 40 mg tabletIndicati ons:Hypertrigl yceridemia Take 1 Tablet (40 mg) by mouth once daily in the evening. 90 Tablet 1 09/04/19 25 Active losartan (COZAAR) 50 mg tabletIndicati ons:HTN (hypertension) Take 1 Tablet (50 mg) by mouth once daily. 90 Tablet 1 10/04/19 25 Active meloxicam 15 mg tabletIndicati ons:Plantar fasciitis Take 1 Tablet (15 mg) by mouth once daily. 30 Tablet 2 10/09/19 25 Active amLODIPine (NORVASC) 2.5 mg tabletIndicati ons:HTN (hypertension) Take 1 Tablet (2.5 mg) by mouth once daily. 90 Tablet 10/04/19 25 025 Discontin ued(*Med complete/ Regimen complete/ Level of care change) Active Problems Problem Noted Date Diagnosed Date HTN (hypertension) 02/22/2024 Hearing loss 05/20/2023 Overview (05/20/2023): Mixed conductive and sensorineural hearing loss of left ear with restricted hearing of right ear CINDY 05/08/2018 AHI-6 RDI-21 Supine REM-60 018 Adenomatous colon polyp 05/02/2018 Overview (05/02/2018): Colonoscopy 04/2018 polyps, repeat in 3 years Abnormal cardiovascular stre ss test - inferior ischemia on stress echo 03/02/2018 Overview (03/07/2018): False positive stress test, angiogram was normal Obesity 03/02/2018 Ventral hernia without obstruction or gangrene 0 03/02/2018 Angina pectoris 03/02/2018 Resolved Problems Problem Noted Date Diagnosed Date Resolved Date Elevated troponin level 05/20/20230 03/2025 Non-STEMI (non-ST elevated m yocardial infarction) 05/07/2023 09/04/2024 Pneumonia due to human metapneumovirus 10/18/2022 02/11/2025 Shortness of breath 09/22/2022 02/12/20 25 Community acquired pneumonia of left upper lobe of lung 09/22/2022 02/11/2025 CINDY 05/08/2018 AHI-6 RDI-21 Supine REM-60 07/05/2018 07/05/2018 CINDY (obstructive sleep apnea) 05/08/2018 07/05/2018 Overview (06/14/2018): Sleep study at [facility] False positive cardiac stress test 03/07/2018 02/11/2025 Family history of cardiac disorder 03/02/2018 02/11/2025 Cardiac ischemia 02/26/2018 03/02/2018 Encounters Date Type Department Care Team Description 02/12/2025 4:00 PM CDT Office Visit [facility] [address] [place] [address] Conor Polk, AuD Hearing Aid 02/12/2025 Travel 02/10/2025 9:00 AM CDT [place] [facility] [address] [place] [address] Alea Jha MD Abdominal Pain (Pt is present for hernia); Plantar fasciitis (Pt is present for Plantar fasciitis on right foot) 02/10/2025 Travel from Last 3 Months Immunizations Immunization Administration Dates Next Due Tdap 05/24/2020 Family History Medical History Relation Name Comments Diabetes type II Brother 1 COPD Brother 2 Heart attack Father Osteoarthritis Mother Diabetes type II Sister Relation Name Status Comments Brother 1 (Age T2DM) 80 Brother 2 (Age 65) COPD Brother 3 Alive Brother 4 Alive Brother 5 Alive Father (Age 70) NC Mother (Age 85) OA Sister (Age 65) T2DM Social History Tobacco Use Types Packs/Day Years Used Date Smoking Tobacco: Former Smokeless Tobacco: Never Tobacco Cessation:Counseling Given: Yes Comments:smoked 4-5 years only Alcohol Use Standard Drinks/Week Comments No 0 (1 standard drink = 0.6 oz pur e alcohol) PHQ-2 Answer Date Recorded PHQ-2 TOTAL SCORE 0 07/16/2020 Social Connections Answer Date Recorded Do you often feel lonely or isolated from those around you? 0 10/04/2024 Financial Resource Strain Answer Date R ecorded Difficulty of Paying Living Expenses 3 10/04/2024 Difficulty of Paying Living Expenses Not on file 10/04/2024 Food Insecurity Answer Date Recorded Do you worry your food will run out before you are able to buy more? 1 10/04/2024 Transportation Needs Answer Date Record ed Does lack of transportation keep you from medica l appointments? 1 10/04/2024 Does lack of transportation keep you from work, meetings or getting things that you need? 1 10/04/2024 Housing Stability Answer Date Recorded What is your housing situation today? 1 10/04/2024 Utilities Answer Date Recorded Do you have trouble paying f or utilities (for example, heat, electricity, water, phone)? 1 10/04/2024 Sex and Gender Information Value Date Recorded Sex Assigned at Not on file Legal Sex Male 1:26 PM CDT Gender Identity Not on file Sexual Orientation Not on file Travel History Travel Start Travel End [place] 01/11/2025 02/02/2025 Obstetrics History Last Filed Vital Signs Vital Sign Reading Time Taken Comments Blood Pressure 137/82 02/10/2025 8:57 AM CDT Pulse 63 02/10/2025 8:57 AM CDT Temperature 36.7 C (98 F) 10/08/2024 1:07 PM DELIVERY SALES WORKER Respiratory Rate 16 04/01/2024 8:49 AM CDT Oxygen Saturation 97% 10/08/2024 1:07 PM DELIVERY SALES WORKER Inhaled Oxygen Concentration - - Weight 94.8 kg (209 lb) 02/10/2025 8:57 AM CDT Height 167.6 cm (5' 6) 02/10/2025 8:57 AM CDT Body Mass Index 33.73 02/10/2025 8:57 AM CDT Plan of Treatment Upcoming Encounters Date Type Department Care Team (Late st Contact Info) Description 02/19/2025 10:30 AM CDT Office Visit [facility] [id number] [place] [address] [id number] Feliz Pugh MD [address] [address] 03/04/2025 11:00 AM CDT Office Visit [facility] [place] [address] [facility] [address] [id number] Thompson Kennedy, DPTommy [address] [place] [address] Health Maintenance Due Date Last Done Comments HIV for age 15-65 1974 Pneumococcal series for age 50+ (1 of 2 - PCV) 1978 Zoster (shingles) series for age 50+ (1 of 2) 2009 RSV vaccine for adults or (1 - Risk 60-74 years 1-dose series) 2019 Depression screening for age 12+ 07/16/2021 07/16/2020, 02/28/2018, 02/05/2018 COVID-19 vaccine series ( season) 2024 05/15/2021, 11/06/2020, 10/15/2020 AAA screening age 65-74 2024 01/21/2022, 04/11 Influenza Vaccine (#1) 2025 BMI (ht and wt on same day) for age 18+ 02/10/2026 02/10/2025, 12/14/2023, 07/03/2023, Additional history exists Colonoscopy through age 75 09/08/202609/08, 04/30/2018, 04/30/2018, Additional history exists Lipids for age 45-75 02/10/2030 02/10/2025, 05/21/2023, 02/28/2018, Additional history exists Tetanus booster 05/24/2030 05/24/2020 Hepatitis C screening for age 18-79 Completed 05/30/2019 Hepatitis B series for 19+ Aged Out N o longer eligible based on patient's age to complete this topic Procedures Procedure Name Priority Date/Time Associated Diagnosis Comments BASIC METABOLIC PANEL Routine 02/10/2025 9:22 AM CDT HTN (hypertension) LIPID PANEL W REFLEX MEASURED LDL Routine 02/10/2025 9:22 AM CDT Hypertriglyceridemi a SCAN-COLONOSCOPY 09/08/2023 3:[address] ABDOMEN PELVIS WO STAT 01/21/2022 1:50 PM CDT Continuous severe abdominal pain ANTI HCV Routine 05/30/2019 9:15 AM CDT Encounter for HCV screening test for low risk patient from Last 3 Months or Most Recently Relevant to Health Maintenance Results * (ABNORMAL) LIPID PANEL W REFLEX MEASURED LDL (02/10/2025 9:22 AM CDT) Pathologist [facility] CHOLESTEROL, TOTAL 194 <200 mg/dL 02/11/2025 9:59 AM CDT [facility] TRIGLYCERIDES 164(H) <150 mg/dL 02/11/2025 9:59 AM CDT [facility] HDL CHOLESTEROL 35(L) > OR = 40 mg/dL 02/11/2025 9:59 AM CDT [facility] NON HDL CHOLESTEROL 159(H) <130 mg/dL (calc) 02/11/2025 9:59 AM CDT [facility] Comment: For patients with diabetes plus 1 major ASCVD risk factor, treating to a non-HDL-C goal of <100 mg/dL (LDL-C of <70 mg/dL) is considered a therapeutic option. CHOL/HDLC RATIO 5.5(H) <5.0 (calc) 02/11/2025 9:59 AM CDT [facility] LDL-CHOLESTEROL 131(H) mg/dL (calc) 02/11/2025 9:59 AM CDT [facility] Comment: Reference range: <100 Desirable range <100 mg/dL for primary prevention; <70 mg/dL for patients with CHD or diabetic patients with > or = 2 CHD risk factors. LDL-C is now calculated using the Giovanni calculation, which is a validated novel method providing better accuracy than the Friedewald equation in the estimation of LDL-C. Collins SS et al. AILEEN. 2013;310(19): 5297-9494 (http://education.[employer]/faq/OIV656) Blood BLOOD SPECIMEN / Unknown Non-Lab Venipuncture / Unknown 02/10/2025 9:22 AM CDT 02/10/2025 9:22 AM CDT Alea Jha MD CHEMISTRY Final Resu lt [facility] [address] [place] [address], * (ABNORMAL) BASIC METABOLIC PANEL (02/10/2025 9:22 AM CDT) SODIUM 141 135 - 146 mmol/L 02/11/2025 9:59 AM CDT [facility] POTASSIUM 4.5 3.5 - 5.3 mmol/L 02/11/2025 9:59 AM CDT [facility] CARBON DIOXIDE 27 20 - 32 mmol/L 02/11/2025 9:59 AM CDT [facility] GLUCOSE 116(H) 65 - 99 mg/dL 02/11/2025 9:59 AM CDT [facility] Comment: Fasting reference interval For someone without known diabetes, a glucose value between 100 and 125 mg/dL is consistent with prediabetes and should be confirmed with a follow-up test. CALCIUM 9.3 8.6 - 10.3 mg/dL 02/11/2025 9:59 AM CDT [facility] CREATININE 0.95 0.70 - 1.35 mg/dL 02/11/2025 9:59 AM CDT [facility] BUN/CREATININE RATIO SEE NOTE: 6 - 22 (calc) 02/11/2025 9:59 AM CDT [facility] Comment: Not Reported: BUN and Creatinine are within reference range. EGFR 89 > OR = 60 mL/min/1. 73m2 02/11/2025 9:59 AM CDT [facility] UREA NITROGEN (BUN) 12 7 - 25 mg/dL 02/11/2025 9:59 AM CDT [facility] ELECTROLYTE BALANCE 7 7 - 17 mmol/L (calc) 02/11/2025 9:59 AM CDT [facility] CHLORIDE 107 98 - 110 mmol/L 02/11/2025 9:59 AM CDT [facility] Blood BLOOD SPECIMEN / Unknown Non-Lab Venipuncture / Unknown 02/10/2025 9:22 AM CDT 02/10/2025 9:22 AM CDT us Alea Jha MD CHEMISTRY Final Resu lt [facility] [address] [place] [address], * SCAN-COLONOSCOPY (09/08/2023 3:00 PM DELIVERY SALES WORKER) Narrative Procedure Note Adam Dugan MD - 09/08/2023 2:07 PM CST [facility] [address] [facility], [address], [place] [address] Patient Name: Francisco Richardson Gender: Male Exam Date: 09/08/2023 Visit Number: [id number] Age: 63 Years Date of : 1960 Attending MD: Adam Dugan MD Medical Record#: [id number] Procedure: Colonoscopy Indications: Previous adenomatous polyp(s) Referring MD: Amisha Kelly PAC Primary MD: No Primary Medications: Intra Procedure Medications: Patient received [...] signed by: El [place] [address] Orders Instruction(s)/Education: Instruction/Education Timeframe Assessment Colon Cancer [...] MD 09/08/2023 cc: No Primary cc: Amisha [place] us Adam Dugan MD OTHER Final Resul t * CT ABDOMEN PELVIS WO (01/21/2022 1:50 PM CDT) Anatomical Region Laterality Modality Abdomen, Pelvis, AORTA, LIVER, SPLEEN Computed Tomography 01/21/2022 2:41 PM CDT Narrative 01/21/2022 2:41 PM CDT For Patients: As a result of the Cures Act, medical imaging exams and procedure reports are released immediately into your electronic medical record. You may view this report before your referring provider. If you have questions, please contact your health care provider. Indication: Continuous severe abdominal pain Technique: Noncontrast CT abdomen and pelvis Please note that all CT scans at this facility use dose modulation, iterative reconstruction, and/or weight-based dosing when appropriate to reduce radiation dose to as low as reasonably achievable. Comparison: 04/11/2018 Findings: 3 millimeter nodule within the right middle lobe, series 2, slice 2. No pleural effusion or infiltrate. Mild cardiomegaly. No CHF. Normal noncontrast enhanced liver. The gallbladder is normal. No calcified gallstones or biliary obstruction. Normal pancreas. The spleen is normal. There is a small hiatal hernia measuring 2.8 cm. Adrenal glands normal. Stable simple right renal cortical cysts measuring up to 3 cm. Normal left kidney. Mild vascular calcifications. No aneurysm. No adenopathy. Bladder is normal. Superior prominence of the prostate is similar to the prior study. The colon is unremarkable. Postoperative changes to the supraumbilical abdominal wall related to open ventral hernia repair with mesh. Mild postoperative related reticular stranding noted without postoperative seroma or recurrent hernia. The stomach is normal. Normal duodenum. A few scattered air-fluid levels are present within nondistended loops of jejunum. The ileum is normal. No fracture. Impression: Mild jejunal enteritis is suspected. No bowel obstruction. Increased stool within the hepatic flexure may be related to constipation. No renal stone or gallstone. Stable right renal cysts. Postop changes ventral hernia repair without recurrent hernia or postop complication. Please note that all CT scans at this facility use dose modulation, iterative reconstruction, and/or weight-based dosing when appropriate to reduce radiation dose to as low as reasonably achievable. Dictated by Misael Carmona MD @ Jan 21 2022 2:41PM (Electronically Signed) Procedure Note Misael Carmona MD - 01/21/2022 For Patients: As a result of the 21st Century Cures Act, medical imagingexams and procedure reports are released immediately into your electronicmedical record. You may view this report before your referring provider.If you have questions, please contact your health care provider. Indication: Continuous severe abdominal pain Technique: Noncontrast CT abdomen and pelvis Please note that all CT scans at this facility use dose modulation,iterative reconstruction, and/or weight-based dosing when appropriate toreduce radiation dose to as low as reasonably achievable. Comparison: 04/11/2018 Findings: 3 millimeter nodule within the right middle lobe, series 2, slice 2. Nopleural effusion or infiltrate. Mild cardiomegaly. No CHF. Normalnoncontrast enhanced liver. The gallbladder is normal. No calcifiedgallstones or biliary obstruction. Normal pancreas. The spleen is normal.There is a small hiatal hernia measuring 2.8 cm. Adrenal glands normal.Stable simple right renal cortical cysts measuring up to 3 cm. Normal leftkidney. Mild vascular calcifications. No aneurysm. No adenopathy. Bladderis normal. Superior prominence of the prostate is similar to the priorstudy. The colon is unremarkable. Postoperative changes to thesupraumbilical abdominal wall related to open ventral hernia repair withmesh. Mild postoperative related reticular stranding noted withoutpostoperative seroma or recurrent hernia. The stomach is normal. Normalduodenum. A few scattered air-fluid levels are present within nondistendedloops of jejunum. The ileum is normal. No fracture. Impression: Mild jejunal enteritis is suspected. No bowel obstruction. Increased stool within the hepatic flexure may be related toconstipation. No renal stone or gallstone. Stable right renal cysts. Postop changes ventral hernia repair without recurrent hernia or postopcomplication. Please note that all CT scans at this facility use dose modulation,iterative reconstruction, and/or weight-based dosing when appropriate toreduce radiation dose to as low as reasonably achievable. Dictated by Misael Carmona MD @ Jan 21 2022 2:41PM (Electronically Signed) Anabella Lee DO CT Final Result * ANTI HCV (05/30/2019 9:15 AM CDT) HEPATITIS C ANTIBODY Non-React jad Non-React jad 05/30/2019 2:35 PM CDT [facility] Comment:Antibodies to HCV no t detected; does not exclude the possibility of exposure to HCV. Blood BLOOD SPECIMEN / Unknown Venipuncture / Unknown 05/30/2019 9:15 AM CDT 05/30/2019 9:19 AM CDT us Yany NEW SEND OUTS Final Result [facility] [address] [place] [address], from Last 3 Months or Most Recently Relevant to Health Maintenance Insurance [facility] Advance Directives * Full Code (Latest Code Status on File) Date Activated Date Inactivated Comments 05/21/2023 1:26 AM 05/22/2023 6:31 PM Question Answer Comments Code Status Discussion: Reviewed Preferences * Full Code Date Activated Date Inactivated Comments 03/02/2018 9:00 AM 03/02/2018 8:01 PM Care Teams Finance Professor Relationship Specialty Start Date End Date Lucy Villa DO [address] [place] [address] PCP - General Family Practice 06/02/23
--- OUTSIDE RECORDS SUMMARY | 2025-02-14 18:23 | XMS_ITS | Clinical Summary ---
Author Organization [facility] Address [address] [place] [address] Care Team Providers Care Professional Services Specialist Name Role Phone Nazario Alvarado Primary Care Provider [phone] Allergies No known active allergies Medications ARTIFICIAL TEAR SOLUTION OP Place 1 drop into both eyes as needed Active predniSONE (DELTASONE) 10 MG tabletIndications:H uman metapneumovirus (hMPV) pneumonia 4 tabs daily for 2 days, then 3 tabs daily for 2 days, then 2 tabs daily for 2 days, then 1 tab daily for 2 days, then stop 20 tablet 3 Active albuterol (PROAIR HFA/PROVENTIL HFA/VENTOLIN HFA) 108 (90 Base) MCG/ACT inhalerIndications: Human metapneumovirus (hMPV) pneumonia Inhale 2 puffs into the lungs every 6 hours as needed for shortness of breath, wheezing or cough 18 g 3 Active fluticasone-vilante rol (BREO ELLIPTA) 200-25 MCG/ACT inhalerIndications: Reactive airway disease without complication, unspecified asthma severity, unspecified whether persistent Inhale 1 puff into the lungs daily 28 each 3 Active Active Problems Problem Noted Date Diagnosed Date Shortness of breath 09/22/2022 Wheezing 09/22/2022 Fever in adult 09/22/2022 Community acquired pneumonia of left upper lobe of lung 09/22/2022 Cough, unspecified type 09/22/2022 Immunizations Immunization Administration Dates Next Due TDAP (Adacel,Boostrix) 05/24/2020 Social History Tobacco Use Types Packs/Day Years Used Date Smoking Tobacco: Never Assessed Adolescent Education Answer Date Record ed Getting School Help Needed Not on file 04/29 Sex and Gender Information Value Date Recorded Sex Assigned at Not on file Legal Sex Male 11:26 AM CDT Gender Identity Not on file Sexual Orientation Not on file Last Filed Vital Signs Vital Sign Reading Time Taken Comments Blood Pressure 127/74 09/24/2022 12:10 PM ENTERPRISE PROJECT MANAGER Pulse 67 09/24/2022 12:10 PM ENTERPRISE PROJECT MANAGER Temperature 36.9 C (98.5 F) 09/24/2022 12:10 PM ENTERPRISE PROJECT MANAGER Respiratory Rate 18 09/24/2022 12:10 PM ENTERPRISE PROJECT MANAGER Oxygen Saturation 97% 09/24/2022 12:10 PM ENTERPRISE PROJECT MANAGER Inhaled Oxygen Concentration - - Weight 84.8 kg (187 lb) 09/23/2022 5:37 AM ENTERPRISE PROJECT MANAGER Height 167.6 cm (5' 6) 09/21/2022 9:45 AM ENTERPRISE PROJECT MANAGER Body Mass Index 30.18 09/21/2022 9:45 AM ENTERPRISE PROJECT MANAGER Plan of Treatment Health Maintenance Due Date Last Done Comments ADVANCE CARE PLANNING 1960 ANNUAL REVIEW OF HM ORDERS 1960 ASTHMA ACTION PLAN 1960 ASTHMA CONTROL TEST 1960 [address] COLONOGRAPHY 1960 FIT 1960 FLEX SIG 1960 sDNA (Cologuard) 1960 COLONOSCOPY 1969 COLORECTAL CANCER SCREENING 1969 HIV SCREENING 1974 HEPATITIS C SCREENING 1977 PNEUMOCOCCAL VACCINE 50+ YEARS (1 of 2 - PCV) 1978 ZOSTER VACCINE (1 of 2) 1978 LIPID 1999 RSV VACCINE (1 - Risk 60-74 years 1-dose series) 2019 COVID-19 VACCINE ( season) 2024 05/15/2021, 11/06/2020, 10/15/2020 PHQ-2 (once per calendar year) 2024 FALL RISK ASSESSMENT 2024 MEDICARE ANNUAL WELLNESS VISIT 2024 INFLUENZA VACCINE (Season Ended) 2025 DIABETES SCREENING 09/24/2025 09/24/2022, 0 09/24/2022, 09/24/2022, Additional history exists DTAP/TDAP/TD VACCINE (2 - Td or Tdap) 05/24/2030 05/24/2020 HPV VACCINE Aged Out No longer eligi ble based on patient's age to complete this topic MENINGITIS VACCINE Aged Out No longer eligible based on patient's age to complete this topic Procedures Procedure Name Priority Date/Time Associated Diagnosis Comments GLUCOSE BY METER Routine 09/24/2022 2:21 AM ENTERPRISE PROJECT MANAGER from Last 3 Months or Most Recently Relevant to Health Maintenance Results * (ABNORMAL) Glucose by meter (09/24/2022 2:21 AM ENTERPRISE PROJECT MANAGER) GLUCOSE BY METER POCT 133(H) 70 - 99 mg/dL 09/24/2022 2:29 AM ENTERPRISE PROJECT MANAGER LABORATORY POC Blood, Capillary BLOOD SPECIMEN / Unknown 09/24/2022 2:21 AM ENTERPRISE PROJECT MANAGER 09/24/2022 2:29 AM ENTERPRISE PROJECT MANAGER Chico Pedraza MD LAB - BEAKER POCT Final Resu lt LABORATORY POC [facility] [address], [address] [place] [address], [facility] [phone] from Last 3 Months or Most Recently Relevant to Health Maintenance Insurance [facility] Advance Directives For more information, please contact: [phone] * Full Code (Latest Code Status on File) Date Activated Date Inactivated Comments 09/21/2022 3:20 PM 09/24/2022 4:17 PM All basic an d advanced life-sustaining interventions are performed as appropriate Question Answer Comments Code status determined by: Discussion with delbert nt/ legal decision maker Care Teams Professional Services Specialist Relationship Specialty Start Date End Date Nazario Alvarado [address] [place] [address] PCP - General Family Practice 05/24/20
[2025-02-14 19:02] VITALS: BP 185/97; PULSE 53; RESP 20; TEMP 36.8; O2SAT 97; BMI 33.1
--- NOTE | 2025-02-14 19:15 | CRLHL7_ITS ---
For Patients: As a result of the Century Cures Act, medical imaging exams and procedure reports are released immediately into your electronic medical record. You may view this report before your referring provider. If you have questions, please contact your health care provider. INDICATION: Right upper quadrant pain. TECHNIQUE: CT abdomen and pelvis acquired with 99 cc of Isovue 370 IV contrast. COMPARISON: None. FINDINGS: Lower chest: Unremarkable. Liver: Diffuse fatty infiltration. Normal contour. No suspicious mass. Gallbladder and bile ducts: Unremarkable. No stones or inflammation. No biliary dilatation. Pancreas: Unremarkable. No mass or inflammation. Spleen: Unremarkable. Normal in size. No masses. Adrenal glands: Unremarkable. No nodules. Kidneys: Bilateral renal cysts. No suspicious mass or stone. GI tract: Unremarkable. Normal in caliber. No sign of mass or inflammation. No evidence for appendicitis. Vasculature: Normal caliber abdominal aorta with mild atherosclerotic calcification. Mesenteric arteries are patent. Lymph nodes: No lymphadenopathy. Peritoneum/Abdominal Wall: Unremarkable. No free air or significant free fluid. Pelvis: Unremarkable. Bones: Unremarkable for age. IMPRESSION: 1. No acute findings within the abdomen and pelvis. 2. Hepatic steatosis. Please note that all CT scans at this facility use dose modulation, iterative reconstruction, and/or weight-based dosing when appropriate to reduce radiation dose to as low as reasonably achievable. Dictated by Nimesh Alexis MD @ 02/14/2025 8:09:00 PM (Electronically Signed)
--- NOTE | 2025-02-14 19:17 | ED_ITS ---
HPI - General Adult General Chief complaint: Abdominal Pain Stated complaint: Had Hernia surgery 4 yrs ago, pain on Rt side Time Seen by Provider: 02/14/25 18:25 History of Present Illness HPI narrative: Patient is a 64-year-old male who through his son doing translation after they signed consent to do their own translation, presents with right upper quadrant abdominal pain. The patient had a ventral hernia repair about 4 years ago. He has had hypertension otherwise been fairly healthy. He has had no other abdominal surgery. He feels like it has been difficult to have a bowel movement as well. He has had no fevers chills no vomiting he has been feeling poorly for a couple of days he does have an appointment to see a surgeon next week. They were concerned that there was recurrence of his hernia foot lateral to the midline ventral hernia repair. He has had no chest pain, breathing problem, fevers or chills, no dysuria hematuria. Related Data Home Medications ?Medication ?Instructions ?Recorded ?Confirmed amlodipine 2.5 mg tablet 2.5 mg PO DAILY 02/14/2507/01 losartan 50 mg tablet 50 mg PO DAILY 02/14/2502/04 Allergies Allergy/AdvReac Type Severity Reaction Status Date / Time No Known Drug Allergies Allergy Verified 02/14/25 19:32 Review of Systems Status of ROS: Reports: 6 or more systems reviewed and unremarkable except as noted in History and below [facility] Social History Smoking Status: Never smoker Do you use any of these nicotine containing products: None Second hand tobacco smoke exposure: No How often do you have a drink containing alcohol: never How often do you have six or more drinks on one occasion: Never AUDIT-C Alcohol total score: 0 Non-prescribed substance use: denies use Exam Narrative: Exam Narrative: Objective: Vital signs show elevated blood pressure 185/97 otherwise unremarkable afebrile good O2 sat 97% Alert orient x3 no distress No scleral icterus No facial asymmetry mouth appears clear Pulse regular chest clear abdomen is distended he does have some right lower abdominal pain but mostly right upper abdominal pain in his and has a positive Llanos sign. I do not palpate any obvious herniation. He has a midline ventral hernia scar repair looks intact bowel sounds are hypoactive No complaints , extremities are no edema , neurologic nonfocal Const: Vital Signs, click to edit/add: Vital Signs - 24 hr 02/14/25 19:02 02/14/25 20:26 02/14/25 20:30 Temperature 98.3 F 98.3 F Pulse Rate [Pulse Oximeter] 53 L 62 Respiratory Rate 20 20 Blood Pressure [Ri ght Upper Arm] 185/97 H 162/79 H Pulse Oximetry 97 97 97 Oxygen Delivery Me thod Room Air Room Air 02/14/25 21:16 02/14/25 21:18 Temperature 98.3 F 98.3 F Pulse Rate [Pulse Oximeter] 68 68 Respiratory Rate 20 20 Blood Pressure [Ri ght Upper Arm] 165/85 H 165/85 H Pulse Oximetry 97 Oxygen Delivery Me thod Room Air Course Vital Signs Vital signs: Initial Vital Signs Temperature 98.3 F 02/14/25 19:02 Temperature Source Temporal Artery Scan 02/14/25 19:02 Pulse Rate 53 L 02/14/25 19:02 Respiratory Rate 20 02/14/25 19:02 Blood Pressure 185/97 H 02/14/25 19:02 Blood Pressure Mean 126 H 02/14/25 19:02 Blood Pressure Position Sitting 02/14/25 19:02 Pulse Oximetry 97 02/14/25 19:02 Oxygen Delivery Method Room Air 02/14/25 19:02 Vital Signs Temperature 98.3 F 02/14/25 19:02 Pulse Rate 53 L 02/14/25 19:02 Respiratory Rate 20 02/14/25 19:02 Blood Pressure 185/97 H 02/14/25 19:02 Pulse Oximetry 97 02/14/25 19:02 Oxygen Delivery Method Room Air 02/14/25 19:02 Temperature 98.3 F 02/14/25 21:18 Pulse Rate 68 02/14/25 21:18 Respiratory Rate 20 02/14/25 21:18 Blood Pressure 165/85 H 02/14/25 21:18 Pulse Oximetry 97 02/14/25 21:16 Oxygen Delivery Method Room Air 02/14/25 21:16 Medications Administered Medications: Discontinued Medications Generic Name Dose Route Start Last Admin Trade Name Freq PRN Reason Stop Dose Admin Sodium Chloride 500 mls @ 500 mls/hr 02/14/25 19:15 02/14/25 20:30 0.9 % Sodium Chloride 500 Ml IV 02/14/25 20:14 Infused .Q1H ONE Infusion Morphine Sulfate 4 mg 02/14/25 20:16 02/14/25 20:28 Morphine 4 Mg/Ml Inj IVP 02/14/25 20:17 4 mg ONCE ONE Administration Ondansetron HCl 4 mg 02/14/25 19:40 02/14/25 19:45 Ondansetron 2 Mg/Ml Inj IVP 02/14/25 19:41 4 mg ONCE ONE Administration Medical Decision Making MDM Narrative Medical decision making narrative: [age] year old male with right upper quadrant pain. I think given his prior surgery, would be appropriate to get a CT scan with IV contrast of his abdomen to make sure does not have obstruction, diverticulitis, other intra- abdominal pathology. I suspect he may have biliary colic and may need ultrasoun d as well. Will see how he looks on the CT. Will check electrolytes labs CBC CRP, will get IV fluid. He did denies any need for pain medicine at this time. He has son were comfortable this plan. Addendum 9:00 p.m.: The patient's CT scan of the abdomen is negative for any acute pathology. Lab studies are reassuring, amylase is just slightly elevated. The patient got 4 mg of morphine and had complete resolution of his discomfort. I think he does have some abdominal wall strain in the right upper quadrant. Nothing is noted on CT labs are reassuring. He does feel better with some pain medicine. I think rest light activity ice to the affected area the right upper quadrant and then Tylenol Advil as needed would be appropriate. He does have a follow-up with surgery scheduled next week. Return as needed. Lab Data Labs: Lab Results 02/14/25 Range/Units 19:20 WBC 5.49 (4.50-11.00) K/uL RBC 4.93 (4.30-5.90) m/uL Hgb 14.2 (13.5-17.5) gm/dL Hct 42.9 (37.0-53.0) % MCV 87 (80-100) fL MCH 29 (26-34) pg MCHC 33 (32-36) gm/dL RDW Coeff of [place] 14.3 (11.5-15.5) % Plt Count 203 (140-440) K/uL Neut % (Auto) 47.2 (42.0-72.0) % Lymph % (Auto) 35.9 (20-44) % [place] % (Auto) 10.7 (0.0-11.0) % Eos % (Auto) 4.9 (0.0-7.0) % Baso % (Auto) 1.1 (0.0-3.0) % Neut # (Auto) 2.59 (1.7-7.0) K/uL Lymph # (Auto) 1.97 (0.90-2.90) K/uL [place] # (Auto) 0.60 (0.00-0.90) K/UL Eos # (Auto) 0.27 (0.00-0.50) K/uL Baso # (Auto) 0.06 (0.00-0.30) K/uL Abs Immat Gran (auto) 0.01 (0.00-0.30) K/uL Imm/Tot Granulo (auto) 0.2 % Sodium 140 (135-149) mmol/L Potassium 4.5 (3.6-5.1) mmol/L Chloride 109 (96-114) mmol/L Carbon Dioxide 24 (20-32) mmol/L Anion Gap 7 (7-15) mEq/L BUN 14 (7-30) mg/dL Creatinine 0.8 (0.5-1.5) mg/dL Estimated Creat Clear 66.46 Estimated GFR 98 ml/min Glucose 105 (60-115) mg/dL Lactate 1.1 (0.5-1.9) mmol/L Calcium 9.2 (8.4-10.6) mg/dL Total Bilirubin 0.5 (0.1-1.5) mg/dL Direct Bilirubin 0.2 (0.0-0.5) mg/dL AST 48 H (12-35) U/L ALT 51 H (4-50) U/L Alkaline Phosphatase 61 (40-150) U/L C-Reactive Protein < 0.5 L (0.5-1.0) mg/dL NT-Pro-B Natriuret Pep 39 (See Note) pg/mL Total Protein 7.6 (6.0-8.3) g/dL Albumin 4.6 (3.3-5.0) g/dL Amylase 100 H (18-89) U/L Lipase 134 (23-300) U/L POC Creatinine 0.9 (0.6-1.3) mg/dl Discharge Plan Discharge Clinical Impression: Abdominal pain, acute, right upper quadrant Patient Disposition: Home w/ Parent or Adult Condition: Improved Additional Instructions: Light activity, light diet, ice to the affected area the abdomen as needed, Tylenol Advil as needed, follow-up with the surgeon as scheduled, return to ED sooner problems or concerns. Activity Level: Light activity Discharge Diet: Low Fat/Low Cholesterol Prescriptions: No Action losartan 50 mg tablet 50 mg PO DAILY amlodipine 2.5 mg tablet 2.5 mg PO DAILY Follow Up/Referrals: Provider,Not a Local [Primary Care Provider, Family Practice] Stand Alone Forms: [facility] Info Instructions
[2025-02-14 19:31] LABS: Creatinine, Point-of-Care* 0.9 mg/dl (0.6-1.3)
[2025-02-14 19:32] LABS: Lactate* 1.1 mmol/L (0.5-1.9)
[2025-02-14 19:35] LABS: Hematocrit 42.9 % (37.0-53.0); Hemoglobin* 14.2 gm/dL (13.5-17.5); Immature Granulocytes Abs Auto 0.01 K/uL (0.00-0.30); Immature Granulocytes Pct Auto 0.2 %; Lymphocytes Absolute Auto 1.97 K/uL (0.90-2.90); Mean Corpuscular HGB Conc 33 gm/dL (32-36); Mean Corpuscular Hemoglobin 29 pg (26-34); Mean Corpuscular Volume 87 fL (80-100); RDW Coefficient of Variation % 14.3 % (11.5-15.5); Red Blood Count 4.93 m/uL (4.30-5.90); White Blood Count* 5.49 K/uL (4.50-11.00)
[2025-02-14 19:42] LABS: Slide Review Reflex No
[2025-02-14] MEDS: 0.9 % SODIUM CHLORIDE 500 ML 500 ML IV (19:45)
[2025-02-14] MEDS: ONDANSETRON 2 MG/ML inj 4 MG IVP (19:45)
[2025-02-14 19:49] LABS: Albumin* 4.6 g/dL (3.3-5.0); Chloride* 109 mmol/L (96-114)
[2025-02-14 19:50] LABS: Potassium* 4.5 mmol/L (3.6-5.1); Sodium* 140 mmol/L (135-149)
[2025-02-14 19:52] LABS: Blood Urea Nitrogen* 14 mg/dL (7-30); Creatinine* 0.8 mg/dL (0.5-1.5); Est. Creatinine Clearance* 66.46; Estimated Glomerular Filt Rate 98 ml/min
[2025-02-14 19:53] LABS: Alanine Aminotransferase* 51 U/L (4-50); Alkaline Phosphatase* 61 U/L (40-150); Anion Gap 7 mEq/L (7-15); Aspartate Amino Transferase* 48 U/L (12-35); Bilirubin Direct* 0.2 mg/dL (0.0-0.5); Bilirubin Total* 0.5 mg/dL (0.1-1.5); Calcium* 9.2 mg/dL (8.4-10.6); Carbon Dioxide* 24 mmol/L (20-32); Glucose* 105 mg/dL (60-115); Total Protein* 7.6 g/dL (6.0-8.3)
[2025-02-14 20:26] VITALS: O2SAT 97
[2025-02-14] MEDS: MORPHINE 4 MG/ML INJ IVP (20:28)
[2025-02-14 20:29] LABS: NT Pro B Type NatriureticPept* 39 pg/mL (See Note)
[2025-02-14 20:30] VITALS: BP 162/79; PULSE 62; RESP 20; TEMP 36.8; O2SAT 97
[2025-02-14 21:16] VITALS: BP 165/85; PULSE 68; RESP 20; TEMP 36.8; O2SAT 97
[2025-02-14 21:18] VITALS: BP 165/85; PULSE 68; RESP 20; TEMP 36.8
== END 2025-02-14 21:18 | disposition home or self-care (01) ==
PROVIDERS: Emergency Provider Family Medicine
DX: R10.11 Right upper quadrant pain (principal)
CPT/HCPCS: 36415; 74177; 80048; 80076; 82150; 82565; 83605; 83690; 83880; 85025; 86140; 94761; 96374; 96375; 99284; J2270; J2405; J7030; Q9967